=== PATIENT | female | born 1960 | race Two or more races ===

== ENCOUNTER 2021-04-18 13:36 | Inpatient (IN) | payer MEDICARE, MEDICAID ==
[~2021-04-18] VITALS: Ht 167.6 cm; Wt 93.4 kg
[2021-04-18] MEDS ORDERED: NALOXONE HCL 1 MG/ML 2ML VIAL IV ONE ×2 (13:45→14:00)
[2021-04-18] MEDS ORDERED: ONDANSETRON HCL 4MG/2ML INJ IV ONE (14:00)
[2021-04-18] MEDS ORDERED: VANCOMYCIN 1 G PREMIX 200 ML IV SCH (14:30)
[2021-04-18] MEDS ORDERED: SUCCINYLCHOLINE CHLORIDE 200MG/10ML IV ONE (14:30)
[2021-04-18] MEDS ORDERED: PROPOFOL 10MG/ML 100ML 100 ML IV ONE (14:30)
[2021-04-18] MEDS ORDERED: CEFEPIME 2,000 MG in DEXT 5% WATER 100 ML IV SCH (14:30)
[2021-04-18] MEDS ORDERED: ETOMIDATE 2MG/ML 10ML VIAL IV ONE (14:30)
[2021-04-18 14:45] LABS: CHLORIDE 101 mEq/L (98-107); HEMATOCRIT. 48.2 % (36.0-48.0); HEMOGLOBIN. 15.8 g/dL (12.0-16.0); MEAN CORPUSCULAR HEMOGLOBIN 30.7 pg (28.0-32.0); MEAN CORPUSCULAR VOLUME 93.8 fL (81.0-99.0); PLATELET 257 x1000/uL (130-400); RED BLOOD CELL COUNT 5.14 mill/uL (4.2-5.4); RED CELL DISTRIBUTION WIDTH 14.1 % (11.6-14.6)
[2021-04-18 14:50] LABS: ETHANOL BLOOD < 10 mg/dL
[2021-04-18 15:05] LABS: PLATELET ESTIMATE NORMAL
[2021-04-18] MEDS ORDERED: NOREPINEPHRINE 8MG/250ML PMX 250 ML IV NR ×2 (15:30→18:30)
[2021-04-18 15:32] LABS: BG BASE EXCESS -3.4 mmol/L (-2.0-2.0); BG CARBOXYHEMOGLOBIN 0.4 % (0.5-1.5); BG DEOXYHEMOGLOBIN 11.4 % (0.0-5.0); BG HCO3 ACT 23.1 mmol/L (22.0-26.0); BG METHEMOGLOBIN 0.2 % (0.0-1.5); BG OXYGEN SATURATION 88.5 % (92.0-98.5); BG PO2 56.1 mmHg (75.0-100.0); BG SAMPLE SITE RIGHT FEMORAL; BG TOTAL HEMOGLOBIN 15.9 g/dL (12.0-18.0); BG VENT MODE VENT - AC
[2021-04-18] MEDS ORDERED: NOREPINEPHRINE 8MG/250ML PMX 250 ML IV ONE (15:33)
[2021-04-18] MEDS ORDERED: MIDAZOLAM HCL 2 MG/2 ML VIAL IV PRN (15:48)
[2021-04-18] MEDS ORDERED: SODIUM CHLORIDE 0.9% 1000ML BAG (SEPSIS BOLUS) IV ONE (16:15)
[2021-04-18 16:25] LABS: CLARITY URINE TURBID (CLEAR); COLOR URINE YELLOW (YELLOW); KETONES URINE TRACE (NEGATIVE); LEUKOCYTE ESTERASE URINE 3+ (NEGATIVE); NITRITE URINE NEGATIVE (NEGATIVE); OCCULT BLOOD URINE TRACE (NEGATIVE); PROTEIN URINE 1+ (NEGATIVE); SPECIFIC GRAVITY URINE 1.014 (1.005-1.030); UROBILINOGEN URINE 0.2 E.U./dL (0.2-1.0)
[2021-04-18 16:57] LABS: *BARBITURATES SCREEN URINE NEGATIVE (NEGATIVE); CANNABINOID URINE SCREEN NEGATIVE (NEGATIVE); METHADONE URINE SCREEN NEGATIVE (NEGATIVE); OPIATES URINE SCREEN PRESUMTIVE POSITIVE (NEGATIVE); PHENCYCLIDINE URINE SCREEN NEGATIVE (NEGATIVE)
[2021-04-18 16:58] LABS: *AMPHETAMINES SCREEN URINE NEGATIVE (NEGATIVE); *BENZODIAZEPINES SCREEN URINE NEGATIVE (NEGATIVE); *COCAINE SCREEN URINE NEGATIVE (NEGATIVE)
[2021-04-18] MEDS ORDERED: KETAMINE HCL 100 MG in SODIUM CHLORIDE 0.9% 98 ML IV NR (17:00)
[2021-04-18] MEDS ORDERED: NOREPINEPHRINE 8MG/250ML PMX 250 ML IV PRN ×2 (22:00→22:15)
[2021-04-18] MEDS ORDERED: MORPHINE SULFATE 2 MG/ML CPJ (NOT FOR IM USE) IV PRN (22:13)
[2021-04-18] MEDS ORDERED: IPRATROPIUM/ALBUTEROL 0.5-3(2.5)MG/3ML NEB HHN PRN (22:15)
[2021-04-18] MEDS ORDERED: HYDROCODONE/ACETAMINOPHEN 5/325MG TABLET PO PRN (22:15)
[2021-04-18] MEDS ORDERED: GUAIFENESIN 200MG/10ML SUGAR FREE UDC PO PRN (22:15)
[2021-04-18] MEDS ORDERED: HYDRALAZINE 20MG/ML VIAL IV PRN (22:15)
[2021-04-18] MEDS ORDERED: MAGNESIUM/ALUMINUM HYDROXIDE/SIMETHICONE 30ML UDC PO PRN (22:15)
[2021-04-18] MEDS ORDERED: DOCUSATE SODIUM 100MG CAPSULE PO PRN (22:15)
[2021-04-18] MEDS ORDERED: ONDANSETRON HCL 4MG/2ML INJ IV PRN (22:15)
[2021-04-18] MEDS ORDERED: DIPHENHYDRAMINE 50MG/ML VIAL IV PRN (22:15)
[2021-04-18] MEDS ORDERED: ACETAMINOPHEN 325MG TABLET PO PRN (22:15)
[2021-04-18] MEDS ORDERED: PHENYLEPHRINE 100 MG in DEXT 5% WATER 240 ML IV PRN (22:15)
[2021-04-18] MEDS ORDERED: LORAZEPAM 2MG/ML CPJ IV PRN (22:15)
[2021-04-18] MEDS ORDERED: CLONIDINE 0.1MG TABLET PO PRN (22:15)
[2021-04-18] MEDS ORDERED: PIPERACILLIN/TAZ 3.375G PREMIX 50 ML IV NR (22:17)
[2021-04-19] VITALS (78 sets, daily range): BP systolic 39–156; BP diastolic 25–115
[2021-04-19] MEDS: MIDAZOLAM 100MG/100ML PREMIX IV PRN ×2 (01:36→04:52)
[2021-04-19] MEDS ORDERED: NOREPINEPHRINE 8 MG in DEXT 5% WATER 242 ML IV PRN (04:30)
[2021-04-19] MEDS ORDERED: MIDAZOLAM HCL 100 MG in SODIUM CHLORIDE 0.9% 100 ML IV PRN (04:45)
[2021-04-19] MEDS: NOREPINEPHRINE 8 MG in DEXT 5% WATER 242 ML IV PRN ×2 (04:50→08:01)
[2021-04-19 06:32] LABS: BG BASE EXCESS -4.8 mmol/L (-2.0-2.0); BG CARBOXYHEMOGLOBIN 0.1 % (0.5-1.5); BG DEOXYHEMOGLOBIN 6.1 % (0.0-5.0); BG FRACTION INSPIRED OXYGEN 100; BG HCO3 ACT 20.2 mmol/L (22.0-26.0); BG METHEMOGLOBIN 0.4 % (0.0-1.5); BG OXYGEN SATURATION 93.9 % (92.0-98.5); BG OXYHEMOGLOBIN 93.4 % (94.0-97.0); BG PCO2 37.4 mmHg (35.0-45.0); BG SAMPLE SITE RIGHT RADIAL; BG TOTAL HEMOGLOBIN 15.6 g/dL (12.0-18.0); BG VENT MODE VENT - AC
[2021-04-19] MEDS: ACETAMINOPHEN 650MG/20.3ML UDC PO PRN (07:59)
[2021-04-19] MEDS: DEXT 5%/0.45% NACL 1000ML 1,000 ML IV SCH ×2 (08:00→14:55)
[2021-04-19 08:32] LABS: BASOPHILS % 0.2 % (0.0-2.0); EOSINOPHILS % 0.7 % (0.0-5.0); HEMATOCRIT. 46.2 % (36.0-48.0); HEMOGLOBIN. 15.3 g/dL (12.0-16.0); LYMPHOCYTES % 7.9 % (20.0-50.0); MEAN CORPUSCULAR HEMOGLOBIN 30.9 pg (28.0-32.0); MEAN CORPUSCULAR VOLUME 93.1 fL (81.0-99.0); MEAN PLATELET VOLUME 9.3 fl (7.4-10.4); MONOCYTES % 3.2 % (2.0-8.0); PLATELET 201 x1000/uL (130-400); RED BLOOD CELL COUNT 4.96 mill/uL (4.2-5.4); RED CELL DISTRIBUTION WIDTH 14.1 % (11.6-14.6)
[2021-04-19 08:33] LABS: CHLORIDE 108 mEq/L (98-107)
[2021-04-19 08:54] LABS: CREATINE KINASE 2175 IU/L (26-192)
[2021-04-19] MEDS ORDERED: PIPERACILLIN/TAZOBACTAM 3.375 G in DEXTROSE 5% WATER 50 ML IV SCH (09:00)
[2021-04-19] MEDS ORDERED: ENOXAPARIN 30MG/0.3ML SYR SUBCUT SCH (09:00)
[2021-04-19] MEDS ORDERED: ENOXAPARIN 60MG/0.6ML SYR SUBCUT SCH (10:01)
[2021-04-19 10:32] LABS: D-DIMER 19.38 mg/L FEU (<0.50); INR 1.5; PROTHROMBIN TIME 15.2 sec (9.6-11.0)
[2021-04-19] MEDS ORDERED: FLUMAZENIL 0.1 MG/ML 5ML VIAL IV NR (11:30)
[2021-04-19] MEDS: NOREPINEPHRINE 32 MG in DEXT 5% WATER 218 ML IV PRN (12:13)
[2021-04-19] MEDS: FENTANYL CITRATE/PF 2,500 MCG in SODIUM CHLORIDE 0.9% 200 ML IV PRN (13:46)
[2021-04-19] MEDS: IPRATROPIUM/ALBUTEROL 0.5-3(2.5)MG/3ML NEB HHN SCH (20:08)
[2021-04-19] MEDS: PIPERACILLIN/TAZOBACTAM 3.375 G in DEXTROSE 5% WATER 50 ML IV SCH (21:14)
[2021-04-19] MEDS: ENOXAPARIN 100MG/ML SYR SUBCUT SCH (21:14)
[2021-04-20] VITALS (95 sets, daily range): BP systolic 67–137; BP diastolic 34–87
[2021-04-20] MEDS: DEXT 5%/0.45% NACL 1000ML 1,000 ML IV SCH ×2 (00:04→22:29)
[2021-04-20] MEDS: IPRATROPIUM/ALBUTEROL 0.5-3(2.5)MG/3ML NEB HHN SCH ×6 (00:14→19:50)
[2021-04-20] MEDS: ACETAMINOPHEN 650MG/20.3ML UDC PO PRN (05:01)
[2021-04-20 06:07] LABS: BASOPHILS % 0.2 % (0.0-2.0); EOSINOPHILS % 0.1 % (0.0-5.0); HEMATOCRIT. 39.6 % (36.0-48.0); HEMOGLOBIN. 13.3 g/dL (12.0-16.0); LYMPHOCYTES % 8.6 % (20.0-50.0); MEAN CORPUSCULAR HEMOGLOBIN 30.7 pg (28.0-32.0); MEAN CORPUSCULAR VOLUME 91.4 fL (81.0-99.0); MEAN PLATELET VOLUME 8.9 fl (7.4-10.4); MONOCYTES % 2.5 % (2.0-8.0); NEUTROPHILS % 88.6 % (40.0-76.0); PLATELET 155 x1000/uL (130-400); RED BLOOD CELL COUNT 4.33 mill/uL (4.2-5.4)
[2021-04-20 06:30] LABS: PHOSPHORUS 1.4 mg/dL (2.5-4.9)
[2021-04-20] MEDS: THIAMINE HCL 100MG TABLET PO SCH (08:43)
[2021-04-20] MEDS: PIPERACILLIN/TAZOBACTAM 3.375 G in DEXTROSE 5% WATER 50 ML IV SCH ×2 (08:43→20:15)
[2021-04-20] MEDS: ENOXAPARIN 100MG/ML SYR SUBCUT SCH ×2 (08:48→20:14)
[2021-04-20] MEDS ORDERED: POTASSIUM PHOS,M-BASIC-D-BASIC 20 MMOL in DEXT 5% WATER 243.3333 ML IV NR (09:00)
[2021-04-20 09:10] LABS: ANTI-NUCLEAR ANTIBODIES DIRECT Negative (Negative)
[2021-04-20] MEDS: PANTOPRAZOLE SODIUM 40 MG/VIAL IV SCH (09:53)
[2021-04-20 09:58] LABS: BG BASE EXCESS -0.7 mmol/L (-2.0-2.0); BG DEOXYHEMOGLOBIN 3.9 % (0.0-5.0); BG FRACTION INSPIRED OXYGEN 100; BG HCO3 ACT 22.7 mmol/L (22.0-26.0); BG OXYGEN SATURATION 96.1 % (92.0-98.5); BG OXYHEMOGLOBIN 96.1 % (94.0-97.0); BG PCO2 33.5 mmHg (35.0-45.0); BG PH 7.448 (7.350-7.450); BG PO2 79.7 mmHg (75.0-100.0); BG SAMPLE SITE LEFT RADIAL; BG VENT MODE VENT - AC
[2021-04-20] MEDS: NOREPINEPHRINE 32 MG in DEXT 5% WATER 218 ML IV PRN (20:15)
[2021-04-20] MEDS: FENTANYL CITRATE/PF 2,500 MCG in SODIUM CHLORIDE 0.9% 200 ML IV PRN (20:30)
[2021-04-21] VITALS (95 sets, daily range): BP systolic 70–155; BP diastolic 40–118
[2021-04-21] MEDS: IPRATROPIUM/ALBUTEROL 0.5-3(2.5)MG/3ML NEB HHN SCH ×6 (00:05→19:59)
[2021-04-21 05:33] LABS: BASOPHILS % 0.3 % (0.0-2.0); EOSINOPHILS % 0.2 % (0.0-5.0); HEMATOCRIT. 37.5 % (36.0-48.0); HEMOGLOBIN. 12.7 g/dL (12.0-16.0); LYMPHOCYTES % 7.8 % (20.0-50.0); MEAN CORPUSCULAR VOLUME 91.9 fL (81.0-99.0); MEAN PLATELET VOLUME 9.1 fl (7.4-10.4); MONOCYTES % 5.1 % (2.0-8.0); NEUTROPHILS % 86.6 % (40.0-76.0); PLATELET 159 x1000/uL (130-400); RED BLOOD CELL COUNT 4.08 mill/uL (4.2-5.4); RED CELL DISTRIBUTION WIDTH 14.1 % (11.6-14.6)
[2021-04-21 05:35] LABS: CHLORIDE 110 mEq/L (98-107)
[2021-04-21 07:34] LABS: BG BASE EXCESS 0.2 mmol/L (-2.0-2.0); BG CARBOXYHEMOGLOBIN 0.3 % (0.5-1.5); BG DEOXYHEMOGLOBIN 3.5 % (0.0-5.0); BG HCO3 ACT 24.4 mmol/L (22.0-26.0); BG METHEMOGLOBIN 0.1 % (0.0-1.5); BG OXYGEN SATURATION 96.5 % (92.0-98.5); BG OXYHEMOGLOBIN 96.1 % (94.0-97.0); BG PCO2 38.1 mmHg (35.0-45.0); BG PH 7.425 (7.350-7.450); BG PO2 88.6 mmHg (75.0-100.0); BG SAMPLE SITE RIGHT RADIAL; BG TOTAL HEMOGLOBIN 12.9 g/dL (12.0-18.0); BG VENT MODE VENT - AC
[2021-04-21] MEDS ORDERED: POTASSIUM CHLORIDE 20MEQ/PACKET PO NR (08:00)
[2021-04-21] MEDS: PANTOPRAZOLE SODIUM 40 MG/VIAL IV SCH (09:07)
[2021-04-21] MEDS: PIPERACILLIN/TAZOBACTAM 3.375 G in DEXTROSE 5% WATER 50 ML IV SCH ×2 (09:08→21:38)
[2021-04-21] MEDS: ENOXAPARIN 100MG/ML SYR SUBCUT SCH ×2 (09:08→21:38)
[2021-04-21] MEDS: THIAMINE HCL 100MG TABLET PO SCH (09:09)
[2021-04-21] MEDS ORDERED: DOCUSATE SODIUM SUGAR FREE 100MG/10ML UDC NG PRN (12:15)
[2021-04-21 17:41] LABS: HEPATITIS B SURFACE ANTIGEN NEGATIVE
[2021-04-21] MEDS: FENTANYL CITRATE/PF 2,500 MCG in SODIUM CHLORIDE 0.9% 200 ML IV PRN (21:41)
[2021-04-22] VITALS (94 sets, daily range): BP systolic 88–154; BP diastolic 46–107
[2021-04-22] MEDS: IPRATROPIUM/ALBUTEROL 0.5-3(2.5)MG/3ML NEB HHN SCH ×5 (00:32→20:22)
[2021-04-22 06:02] LABS: HEMATOCRIT. 36.3 % (36.0-48.0); HEMOGLOBIN. 12.1 g/dL (12.0-16.0); MEAN CORPUSCULAR HEMOGLOBIN 30.8 pg (28.0-32.0); MEAN CORPUSCULAR VOLUME 92.1 fL (81.0-99.0); PLATELET 141 x1000/uL (130-400); RED BLOOD CELL COUNT 3.95 mill/uL (4.2-5.4); RED CELL DISTRIBUTION WIDTH 14.2 % (11.6-14.6)
[2021-04-22 06:12] LABS: CHLORIDE 113 mEq/L (98-107)
[2021-04-22 06:25] LABS: PHOSPHORUS 1.7 mg/dL (2.5-4.9)
[2021-04-22 08:54] LABS: BG CARBOXYHEMOGLOBIN 0.3 % (0.5-1.5); BG DEOXYHEMOGLOBIN 1.1 % (0.0-5.0); BG FRACTION INSPIRED OXYGEN 90; BG HCO3 ACT 24.1 mmol/L (22.0-26.0); BG METHEMOGLOBIN 0.4 % (0.0-1.5); BG OXYGEN SATURATION 98.9 % (92.0-98.5); BG OXYHEMOGLOBIN 98.2 % (94.0-97.0); BG PCO2 37.4 mmHg (35.0-45.0); BG PH 7.427 (7.350-7.450); BG PO2 150.7 mmHg (75.0-100.0); BG SAMPLE SITE RIGHT RADIAL; BG TOTAL HEMOGLOBIN 12.6 g/dL (12.0-18.0); BG VENT MODE VENT - AC
[2021-04-22] MEDS ORDERED: POTASSIUM PHOS,M-BASIC-D-BASIC 20 MMOL in DEXT 5% WATER 243.3333 ML IV NR (09:00)
[2021-04-22] MEDS: ENOXAPARIN 100MG/ML SYR SUBCUT SCH ×2 (10:01→20:45)
[2021-04-22] MEDS: PANTOPRAZOLE SODIUM 40 MG/VIAL IV SCH (10:01)
[2021-04-22] MEDS: PIPERACILLIN/TAZOBACTAM 3.375 G in DEXTROSE 5% WATER 50 ML IV SCH ×2 (10:01→20:48)
[2021-04-22] MEDS: THIAMINE HCL 100MG TABLET PO SCH (10:01)
[2021-04-22] MEDS ORDERED: LIDOCAINE HCL 1% 10 MG/ML 10ML VIAL ONE (11:18)
[2021-04-22] MEDS: FENTANYL CITRATE/PF 2,500 MCG in SODIUM CHLORIDE 0.9% 200 ML IV PRN (13:48)
[2021-04-22] MEDS: ZINC SULFATE 220 MG ( 50 ) CAPSULE PO SCH (13:59)
[2021-04-22] MEDS: ASCORBIC ACID 500 MG TABLET PO SCH (13:59)
[2021-04-22 14:24] LABS: PLATELET ESTIMATE NORMAL
[2021-04-22] MEDS: ACETAMINOPHEN 650MG/20.3ML UDC PO PRN (22:08)
[2021-04-23] VITALS (79 sets, daily range): BP systolic 91–155; BP diastolic 36–89
[2021-04-23] MEDS: IPRATROPIUM/ALBUTEROL 0.5-3(2.5)MG/3ML NEB HHN SCH ×6 (00:49→20:29)
[2021-04-23] MEDS: FENTANYL CITRATE/PF 2,500 MCG in SODIUM CHLORIDE 0.9% 200 ML IV PRN ×2 (04:59→17:45)
[2021-04-23 06:07] LABS: HEMATOCRIT. 34.3 % (36.0-48.0); HEMOGLOBIN. 11.4 g/dL (12.0-16.0); MEAN CORPUSCULAR HEMOGLOBIN 30.5 pg (28.0-32.0); MEAN CORPUSCULAR VOLUME 91.7 fL (81.0-99.0); MEAN PLATELET VOLUME 9.1 fl (7.4-10.4); PLATELET 137 x1000/uL (130-400); RED BLOOD CELL COUNT 3.74 mill/uL (4.2-5.4); RED CELL DISTRIBUTION WIDTH 14.3 % (11.6-14.6)
[2021-04-23 06:12] LABS: CHLORIDE 115 mEq/L (98-107)
[2021-04-23 08:02] LABS: BG BASE EXCESS 2.9 mmol/L (-2.0-2.0); BG CARBOXYHEMOGLOBIN 0.3 % (0.5-1.5); BG DEOXYHEMOGLOBIN 6.9 % (0.0-5.0); BG FRACTION INSPIRED OXYGEN 60; BG HCO3 ACT 26.4 mmol/L (22.0-26.0); BG METHEMOGLOBIN 0.1 % (0.0-1.5); BG OXYGEN SATURATION 93.1 % (92.0-98.5); BG OXYHEMOGLOBIN 92.7 % (94.0-97.0); BG PCO2 36.8 mmHg (35.0-45.0); BG PH 7.474 (7.350-7.450); BG PO2 59.6 mmHg (75.0-100.0); BG SAMPLE SITE RIGHT RADIAL; BG TOTAL HEMOGLOBIN 12.1 g/dL (12.0-18.0); BG TOTAL RESPIRATORY RATE 23 b/min; BG VENT MODE VENT - AC
[2021-04-23 08:09] LABS: PLATELET ESTIMATE NORMAL
[2021-04-23] MEDS: PANTOPRAZOLE SODIUM 40 MG/VIAL IV SCH (08:40)
[2021-04-23] MEDS: ZINC SULFATE 220 MG ( 50 ) CAPSULE PO SCH (08:40)
[2021-04-23] MEDS: ASCORBIC ACID 500 MG TABLET PO SCH (08:40)
[2021-04-23] MEDS: ENOXAPARIN 100MG/ML SYR SUBCUT SCH ×2 (08:40→20:59)
[2021-04-23] MEDS: PIPERACILLIN/TAZOBACTAM 3.375G in DEXT 5% WATER 50ML IV SCH ×3 (08:41→21:57)
[2021-04-23] MEDS: THIAMINE HCL 100MG TABLET PO SCH (08:41)
[2021-04-23] MEDS: FLUCONAZOLE 100MG TABLET PO SCH (11:08)
[2021-04-23] MEDS: ACETAMINOPHEN 650MG/20.3ML UDC PO PRN ×2 (11:08→16:27)
[2021-04-23] MEDS: ACETYLCYSTEINE 100MG/ML 10% VIAL 4ML INH SCH (12:09)
[2021-04-24] VITALS (97 sets, daily range): BP systolic 28–174; BP diastolic 16–101
[2021-04-24] MEDS: IPRATROPIUM/ALBUTEROL 0.5-3(2.5)MG/3ML NEB HHN SCH ×6 (00:26→20:18)
[2021-04-24] MEDS: ACETYLCYSTEINE 100MG/ML 10% VIAL 4ML INH SCH ×3 (00:26→15:53)
[2021-04-24] MEDS: ACETAMINOPHEN 650MG/20.3ML UDC PO PRN ×2 (03:35→10:03)
[2021-04-24 05:26] LABS: CHLORIDE 113 mEq/L (98-107)
[2021-04-24 05:28] LABS: HEMATOCRIT. 37.1 % (36.0-48.0); HEMOGLOBIN. 12.3 g/dL (12.0-16.0); MEAN CORPUSCULAR HEMOGLOBIN 30.4 pg (28.0-32.0); MEAN CORPUSCULAR VOLUME 91.7 fL (81.0-99.0); MEAN PLATELET VOLUME 9.7 fl (7.4-10.4); PLATELET 164 x1000/uL (130-400); RED BLOOD CELL COUNT 4.05 mill/uL (4.2-5.4); RED CELL DISTRIBUTION WIDTH 14.1 % (11.6-14.6)
[2021-04-24] MEDS: PIPERACILLIN/TAZOBACTAM 3.375G in DEXT 5% WATER 50ML IV SCH ×3 (05:34→21:45)
[2021-04-24] MEDS: FENTANYL CITRATE/PF 2,500 MCG in SODIUM CHLORIDE 0.9% 200 ML IV PRN (06:55)
[2021-04-24 06:59] LABS: PLATELET ESTIMATE NORMAL
[2021-04-24 08:40] LABS: BG BASE EXCESS 3.6 mmol/L (-2.0-2.0); BG DEOXYHEMOGLOBIN 8.2 % (0.0-5.0); BG FRACTION INSPIRED OXYGEN 60; BG HCO3 ACT 26.8 mmol/L (22.0-26.0); BG METHEMOGLOBIN 0.1 % (0.0-1.5); BG OXYGEN SATURATION 91.8 % (92.0-98.5); BG OXYHEMOGLOBIN 91.7 % (94.0-97.0); BG PCO2 35.7 mmHg (35.0-45.0); BG PH 7.494 (7.350-7.450); BG PO2 57.2 mmHg (75.0-100.0); BG SAMPLE SITE RIGHT RADIAL; BG TOTAL HEMOGLOBIN 11.6 g/dL (12.0-18.0); BG TOTAL RESPIRATORY RATE 28 b/min; BG VENT MODE VENT - AC
[2021-04-24] MEDS: PANTOPRAZOLE SODIUM 40 MG/VIAL IV SCH (08:41)
[2021-04-24] MEDS: THIAMINE HCL 100MG TABLET PO SCH (08:41)
[2021-04-24] MEDS: FLUCONAZOLE 100MG TABLET PO SCH (08:41)
[2021-04-24] MEDS: ENOXAPARIN 100MG/ML SYR SUBCUT SCH ×2 (08:41→20:50)
[2021-04-24] MEDS: ZINC SULFATE 220 MG ( 50 ) CAPSULE PO SCH (08:41)
[2021-04-24] MEDS: ASCORBIC ACID 500 MG TABLET PO SCH (08:41)
[2021-04-24] MEDS: LORAZEPAM 2MG/ML CPJ IV PRN ×2 (08:55→13:28)
[2021-04-24] MEDS: AZITHROMYCIN 500 MG TABLET PO SCH (12:08)
[2021-04-24] MEDS ORDERED: FENTANYL CITRATE/PF 2,500 MCG in SODIUM CHLORIDE 0.9% 200 ML IV PRN (20:00)
[2021-04-25] VITALS (69 sets, daily range): BP systolic 75–156; BP diastolic 38–102
[2021-04-25] MEDS: ACETYLCYSTEINE 100MG/ML 10% VIAL 4ML INH SCH ×3 (00:18→16:26)
[2021-04-25] MEDS: IPRATROPIUM/ALBUTEROL 0.5-3(2.5)MG/3ML NEB HHN SCH ×6 (00:18→20:12)
[2021-04-25 06:07] LABS: BASOPHILS % 0.1 % (0.0-2.0); EOSINOPHILS % 0.2 % (0.0-5.0); HEMATOCRIT. 33.9 % (36.0-48.0); HEMOGLOBIN. 11.2 g/dL (12.0-16.0); MEAN CORPUSCULAR HEMOGLOBIN 30.6 pg (28.0-32.0); MEAN CORPUSCULAR VOLUME 92.4 fL (81.0-99.0); MEAN PLATELET VOLUME 10.3 fl (7.4-10.4); MONOCYTES % 4.5 % (2.0-8.0); NEUTROPHILS % 87.2 % (40.0-76.0); PLATELET 193 x1000/uL (130-400); RED BLOOD CELL COUNT 3.67 mill/uL (4.2-5.4)
[2021-04-25 06:21] LABS: CHLORIDE 113 mEq/L (98-107)
[2021-04-25] MEDS: ACETAMINOPHEN 650MG/20.3ML UDC PO PRN ×3 (06:33→22:07)
[2021-04-25] MEDS: PANTOPRAZOLE SODIUM 40 MG/VIAL IV SCH (09:11)
[2021-04-25] MEDS: AZITHROMYCIN 500 MG TABLET PO SCH (09:11)
[2021-04-25] MEDS: THIAMINE HCL 100MG TABLET PO SCH (09:11)
[2021-04-25] MEDS: FLUCONAZOLE 100MG TABLET PO SCH (09:11)
[2021-04-25] MEDS: ZINC SULFATE 220 MG ( 50 ) CAPSULE PO SCH (09:12)
[2021-04-25] MEDS: ASCORBIC ACID 500 MG TABLET PO SCH (09:15)
[2021-04-25] MEDS: ENOXAPARIN 100MG/ML SYR SUBCUT SCH ×2 (09:15→20:42)
[2021-04-25 09:30] LABS: BG BASE EXCESS 5.2 mmol/L (-2.0-2.0); BG DEOXYHEMOGLOBIN 1.6 % (0.0-5.0); BG FRACTION INSPIRED OXYGEN 70; BG METHEMOGLOBIN 0.2 % (0.0-1.5); BG OXYGEN SATURATION 98.4 % (92.0-98.5); BG OXYHEMOGLOBIN 98.2 % (94.0-97.0); BG PCO2 39.8 mmHg (35.0-45.0); BG PH 7.481 (7.350-7.450); BG PO2 118.8 mmHg (75.0-100.0); BG SAMPLE SITE RIGHT RADIAL; BG TOTAL HEMOGLOBIN 11.7 g/dL (12.0-18.0); BG VENT MODE VENT - AC
[2021-04-25] MEDS: DEXTROSE 5% WATER 1,000 ML IV SCH (09:56)
[2021-04-25] MEDS: FENTANYL CITRATE/PF 2,500 MCG in SODIUM CHLORIDE 0.9% 200 ML IV PRN (12:53)
[2021-04-25] MEDS: VANCOMYCIN 1 G PREMIX 200 ML IV SCH (17:06)
[2021-04-25] MEDS: MEROPENEM 1,000 MG in SODIUM CHLORIDE 0.9% 100 ML IV SCH (17:28)
[2021-04-26] VITALS (95 sets, daily range): BP systolic 97–163; BP diastolic 44–111
[2021-04-26] MEDS: ACETYLCYSTEINE 100MG/ML 10% VIAL 4ML INH SCH ×3 (00:17→16:53)
[2021-04-26] MEDS: IPRATROPIUM/ALBUTEROL 0.5-3(2.5)MG/3ML NEB HHN SCH ×6 (00:18→20:48)
[2021-04-26] MEDS: MEROPENEM 1,000 MG in SODIUM CHLORIDE 0.9% 100 ML IV SCH ×3 (02:23→17:18)
[2021-04-26] MEDS: FENTANYL CITRATE/PF 2,500 MCG in SODIUM CHLORIDE 0.9% 200 ML IV PRN ×2 (03:52→17:48)
[2021-04-26 04:58] LABS: BASOPHILS % 0.1 % (0.0-2.0); EOSINOPHILS % 0.1 % (0.0-5.0); HEMATOCRIT. 30.8 % (36.0-48.0); HEMOGLOBIN. 10.1 g/dL (12.0-16.0); MEAN CORPUSCULAR VOLUME 91.5 fL (81.0-99.0); MEAN PLATELET VOLUME 9.7 fl (7.4-10.4); MONOCYTES % 3.9 % (2.0-8.0); NEUTROPHILS % 87.9 % (40.0-76.0); PLATELET 234 x1000/uL (130-400); RED BLOOD CELL COUNT 3.37 mill/uL (4.2-5.4); RED CELL DISTRIBUTION WIDTH 13.8 % (11.6-14.6)
[2021-04-26 05:13] LABS: CHLORIDE 112 mEq/L (98-107)
[2021-04-26 05:22] LABS: CREATINE KINASE 41 IU/L (26-192)
[2021-04-26] MEDS: VANCOMYCIN 1 G PREMIX 200 ML IV SCH ×2 (05:30→16:21)
[2021-04-26] MEDS: THIAMINE HCL 100MG TABLET PO SCH (08:37)
[2021-04-26] MEDS: PANTOPRAZOLE SODIUM 40 MG/VIAL IV SCH (08:37)
[2021-04-26] MEDS: ENOXAPARIN 100MG/ML SYR SUBCUT SCH ×2 (08:37→21:50)
[2021-04-26] MEDS: AZITHROMYCIN 500 MG TABLET PO SCH (08:37)
[2021-04-26] MEDS: FLUCONAZOLE 100MG TABLET PO SCH (08:37)
[2021-04-26] MEDS: ASCORBIC ACID 500 MG TABLET PO SCH (08:37)
[2021-04-26] MEDS: DEXTROSE 5% WATER 1,000 ML IV SCH (08:39)
[2021-04-26] MEDS: ZINC SULFATE 220 MG ( 50 ) CAPSULE PO SCH (08:42)
[2021-04-26] MEDS: ACETAMINOPHEN 650MG/20.3ML UDC PO PRN (11:37)
[2021-04-26 12:51] LABS: BG BASE EXCESS 2.1 mmol/L (-2.0-2.0); BG CARBOXYHEMOGLOBIN 0.3 % (0.5-1.5); BG DEOXYHEMOGLOBIN 7.2 % (0.0-5.0); BG FRACTION INSPIRED OXYGEN 65; BG HCO3 ACT 25.4 mmol/L (22.0-26.0); BG METHEMOGLOBIN 0.2 % (0.0-1.5); BG OXYGEN SATURATION 92.8 % (92.0-98.5); BG OXYHEMOGLOBIN 92.3 % (94.0-97.0); BG PCO2 34.8 mmHg (35.0-45.0); BG PH 7.481 (7.350-7.450); BG PO2 60.9 mmHg (75.0-100.0); BG SAMPLE SITE LEFT RADIAL; BG TOTAL HEMOGLOBIN 11.2 g/dL (12.0-18.0); BG VENT MODE VENT - AC
[2021-04-27] VITALS (94 sets, daily range): BP systolic 96–144; BP diastolic 45–96
[2021-04-27] MEDS: IPRATROPIUM/ALBUTEROL 0.5-3(2.5)MG/3ML NEB HHN SCH ×5 (00:52→22:05)
[2021-04-27] MEDS: ACETYLCYSTEINE 100MG/ML 10% VIAL 4ML INH SCH ×3 (00:52→15:50)
[2021-04-27] MEDS: MEROPENEM 1,000 MG in SODIUM CHLORIDE 0.9% 100 ML IV SCH ×3 (01:04→17:48)
[2021-04-27 03:15] LABS: HEMATOCRIT. 32.8 % (36.0-48.0); HEMOGLOBIN. 10.9 g/dL (12.0-16.0); MEAN CORPUSCULAR HEMOGLOBIN 30.8 pg (28.0-32.0); MEAN CORPUSCULAR VOLUME 92.5 fL (81.0-99.0); MEAN PLATELET VOLUME 9.3 fl (7.4-10.4); PLATELET 276 x1000/uL (130-400); RED BLOOD CELL COUNT 3.54 mill/uL (4.2-5.4)
[2021-04-27 03:36] LABS: CHLORIDE 111 mEq/L (98-107)
[2021-04-27 03:41] LABS: PHOSPHORUS 1.9 mg/dL (2.5-4.9)
[2021-04-27] MEDS: VANCOMYCIN 1 G PREMIX 200 ML IV SCH (04:03)
[2021-04-27] MEDS: FENTANYL CITRATE/PF 2,500 MCG in SODIUM CHLORIDE 0.9% 200 ML IV PRN ×2 (08:01→18:53)
[2021-04-27 08:21] LABS: PLATELET ESTIMATE NORMAL
[2021-04-27] MEDS: DEXTROSE 5% WATER 1,000 ML IV SCH (09:47)
[2021-04-27] MEDS: ENOXAPARIN 100MG/ML SYR SUBCUT SCH ×2 (09:47→20:08)
[2021-04-27] MEDS: AZITHROMYCIN 500 MG TABLET PO SCH (09:48)
[2021-04-27] MEDS: THIAMINE HCL 100MG TABLET PO SCH (09:48)
[2021-04-27] MEDS: FLUCONAZOLE 100MG TABLET PO SCH (09:48)
[2021-04-27] MEDS: PANTOPRAZOLE SODIUM 40 MG/VIAL IV SCH (09:48)
[2021-04-27] MEDS: ZINC SULFATE 220 MG ( 50 ) CAPSULE PO SCH (09:48)
[2021-04-27] MEDS: ASCORBIC ACID 500 MG TABLET PO SCH (09:48)
[2021-04-27] MEDS: ACETAMINOPHEN 650MG/20.3ML UDC PO PRN (09:48)
[2021-04-27] MEDS ORDERED: POTASSIUM PHOS,M-BASIC-D-BASIC 20 MMOL in DEXT 5% WATER 243.3333 ML IV SCH (10:00)
[2021-04-27] MEDS ORDERED: VANCOMYCIN 1250MG in DEXTROSE 5% WATER 250ML IV SCH (12:00)
[2021-04-27] MEDS ORDERED: BISACODYL 10MG SUPP PR PRN (13:00)
[2021-04-28] VITALS (70 sets, daily range): BP systolic 96–133; BP diastolic 45–93
[2021-04-28] MEDS: IPRATROPIUM/ALBUTEROL 0.5-3(2.5)MG/3ML NEB HHN SCH ×6 (01:24→20:21)
[2021-04-28] MEDS: MEROPENEM 1,000 MG in SODIUM CHLORIDE 0.9% 100 ML IV SCH ×3 (02:16→17:40)
[2021-04-28] MEDS ORDERED: IOHEXOL-300 100 ML BOTTLE ONE (05:02)
[2021-04-28 06:13] LABS: BASOPHILS % 0.3 % (0.0-2.0); EOSINOPHILS % 1.1 % (0.0-5.0); HEMATOCRIT. 28.9 % (36.0-48.0); HEMOGLOBIN. 9.3 g/dL (12.0-16.0); LYMPHOCYTES % 8.6 % (20.0-50.0); MEAN CORPUSCULAR HEMOGLOBIN 30.2 pg (28.0-32.0); MEAN CORPUSCULAR VOLUME 93.4 fL (81.0-99.0); MEAN PLATELET VOLUME 9.8 fl (7.4-10.4); MONOCYTES % 3.8 % (2.0-8.0); NEUTROPHILS % 86.2 % (40.0-76.0); PLATELET 300 x1000/uL (130-400); RED CELL DISTRIBUTION WIDTH 13.8 % (11.6-14.6)
[2021-04-28 06:16] LABS: CHLORIDE 110 mEq/L (98-107)
[2021-04-28 06:22] LABS: PHOSPHORUS 2.3 mg/dL (2.5-4.9)
[2021-04-28] MEDS: FENTANYL CITRATE/PF 2,500 MCG in SODIUM CHLORIDE 0.9% 200 ML IV PRN ×2 (08:09→22:38)
[2021-04-28] MEDS: ASCORBIC ACID 500 MG TABLET PO SCH (08:59)
[2021-04-28] MEDS: ZINC SULFATE 220 MG ( 50 ) CAPSULE PO SCH (08:59)
[2021-04-28] MEDS: THIAMINE HCL 100MG TABLET PO SCH (08:59)
[2021-04-28] MEDS: ACETAMINOPHEN 650MG/20.3ML UDC PO PRN ×2 (08:59→16:06)
[2021-04-28] MEDS: AZITHROMYCIN 500 MG TABLET PO SCH (08:59)
[2021-04-28] MEDS: ENOXAPARIN 100MG/ML SYR SUBCUT SCH ×2 (09:03→21:14)
[2021-04-28] MEDS: ACETYLCYSTEINE 100MG/ML 10% VIAL 4ML INH SCH (09:08)
[2021-04-28 09:43] LABS: BG BASE EXCESS 2.4 mmol/L (-2.0-2.0); BG CARBOXYHEMOGLOBIN 0.3 % (0.5-1.5); BG DEOXYHEMOGLOBIN 2.9 % (0.0-5.0); BG FRACTION INSPIRED OXYGEN 80; BG HCO3 ACT 25.4 mmol/L (22.0-26.0); BG METHEMOGLOBIN 0.2 % (0.0-1.5); BG OXYGEN SATURATION 97.1 % (92.0-98.5); BG OXYHEMOGLOBIN 96.6 % (94.0-97.0); BG PCO2 33.6 mmHg (35.0-45.0); BG PH 7.497 (7.350-7.450); BG PO2 90.5 mmHg (75.0-100.0); BG SAMPLE SITE LEFT RADIAL; BG TOTAL HEMOGLOBIN 10.5 g/dL (12.0-18.0); BG VENT MODE VENT - AC
[2021-04-28] MEDS: PANTOPRAZOLE SODIUM 40 MG/VIAL IV SCH (09:56)
[2021-04-28] MEDS ORDERED: SODIUM PHOS,M-BASIC-D-BASIC 20 MM in DEXT 5% WATER 243.3333 ML IV NR (10:00)
[2021-04-28] MEDS: DEXTROSE 5% WATER 1,000 ML IV SCH (13:55)
[2021-04-28] MEDS: METHYLPREDNISOLONE SOD SUCC 40 MG/ML VIAL IV SCH ×2 (13:55→21:14)
[2021-04-29] VITALS (94 sets, daily range): BP systolic 75–135; BP diastolic 49–93
[2021-04-29] MEDS: ACETAMINOPHEN 650MG/20.3ML UDC PO PRN ×3 (00:12→17:16)
[2021-04-29] MEDS: IPRATROPIUM/ALBUTEROL 0.5-3(2.5)MG/3ML NEB HHN SCH ×6 (00:39→20:51)
[2021-04-29] MEDS: MEROPENEM 1,000 MG in SODIUM CHLORIDE 0.9% 100 ML IV SCH ×3 (01:43→17:13)
[2021-04-29] MEDS: METHYLPREDNISOLONE SOD SUCC 40 MG/ML VIAL IV SCH ×3 (05:20→21:32)
[2021-04-29 06:00] LABS: HEMATOCRIT. 30.4 % (36.0-48.0); HEMOGLOBIN. 9.8 g/dL (12.0-16.0); MEAN CORPUSCULAR HEMOGLOBIN 30.3 pg (28.0-32.0); MEAN CORPUSCULAR VOLUME 93.5 fL (81.0-99.0); MEAN PLATELET VOLUME 10.1 fl (7.4-10.4); PLATELET 359 x1000/uL (130-400); RED BLOOD CELL COUNT 3.25 mill/uL (4.2-5.4); RED CELL DISTRIBUTION WIDTH 13.9 % (11.6-14.6)
[2021-04-29 06:14] LABS: CHLORIDE 108 mEq/L (98-107)
[2021-04-29 06:30] LABS: PHOSPHORUS 2.8 mg/dL (2.5-4.9)
[2021-04-29] MEDS: ASCORBIC ACID 500 MG TABLET PO SCH (08:13)
[2021-04-29] MEDS: THIAMINE HCL 100MG TABLET PO SCH (08:13)
[2021-04-29] MEDS: ZINC SULFATE 220 MG ( 50 ) CAPSULE PO SCH (08:13)
[2021-04-29] MEDS: ENOXAPARIN 100MG/ML SYR SUBCUT SCH ×2 (08:13→20:18)
[2021-04-29] MEDS: PANTOPRAZOLE SODIUM 40 MG/VIAL IV SCH (08:13)
[2021-04-29 08:57] LABS: BG BASE EXCESS 2.9 mmol/L (-2.0-2.0); BG CARBOXYHEMOGLOBIN 0.3 % (0.5-1.5); BG DEOXYHEMOGLOBIN 3.7 % (0.0-5.0); BG FRACTION INSPIRED OXYGEN 80; BG HCO3 ACT 26.8 mmol/L (22.0-26.0); BG METHEMOGLOBIN 0.3 % (0.0-1.5); BG OXYGEN SATURATION 96.3 % (92.0-98.5); BG OXYHEMOGLOBIN 95.7 % (94.0-97.0); BG PCO2 38.4 mmHg (35.0-45.0); BG PH 7.462 (7.350-7.450); BG PO2 82.4 mmHg (75.0-100.0); BG SAMPLE SITE RIGHT RADIAL; BG TOTAL HEMOGLOBIN 10.9 g/dL (12.0-18.0); BG TOTAL RESPIRATORY RATE 40 b/min; BG VENT MODE VENT- PRVC
[2021-04-29] MEDS: DEXTROSE 5% WATER 1,000 ML IV SCH (08:57)
[2021-04-29] MEDS: FENTANYL CITRATE/PF 2,500 MCG in SODIUM CHLORIDE 0.9% 200 ML IV PRN ×2 (09:21→20:17)
[2021-04-29 11:55] LABS: PLATELET ESTIMATE NORMAL
[2021-04-30] VITALS (94 sets, daily range): BP systolic 98–156; BP diastolic 39–146
[2021-04-30] MEDS: IPRATROPIUM/ALBUTEROL 0.5-3(2.5)MG/3ML NEB HHN SCH ×6 (01:03→20:12)
[2021-04-30] MEDS: MEROPENEM 1,000 MG in SODIUM CHLORIDE 0.9% 100 ML IV SCH ×3 (01:28→17:02)
[2021-04-30] MEDS: ACETAMINOPHEN 650MG/20.3ML UDC PO PRN ×3 (03:49→21:32)
[2021-04-30] MEDS: METHYLPREDNISOLONE SOD SUCC 40 MG/ML VIAL IV SCH ×3 (05:01→21:32)
[2021-04-30 05:56] LABS: CHLORIDE 109 mEq/L (98-107)
[2021-04-30 06:03] LABS: HEMATOCRIT. 27.9 % (36.0-48.0); HEMOGLOBIN. 9.5 g/dL (12.0-16.0); MEAN CORPUSCULAR HEMOGLOBIN 31.8 pg (28.0-32.0); MEAN CORPUSCULAR VOLUME 93.4 fL (81.0-99.0); MEAN PLATELET VOLUME 9.8 fl (7.4-10.4); PARTIAL THROMBOPLASTIN TIME 26.2 sec (23.4-31.0); PLATELET 477 x1000/uL (130-400); RED BLOOD CELL COUNT 2.98 mill/uL (4.2-5.4); RED CELL DISTRIBUTION WIDTH 13.8 % (11.6-14.6)
[2021-04-30 06:06] LABS: CREATINE KINASE 350 IU/L (26-192)
[2021-04-30 08:09] LABS: BG BASE EXCESS 2.7 mmol/L (-2.0-2.0); BG CARBOXYHEMOGLOBIN 0.3 % (0.5-1.5); BG DEOXYHEMOGLOBIN 6.4 % (0.0-5.0); BG HCO3 ACT 26.8 mmol/L (22.0-26.0); BG METHEMOGLOBIN 0.3 % (0.0-1.5); BG OXYGEN SATURATION 93.6 % (92.0-98.5); BG PCO2 39.3 mmHg (35.0-45.0); BG PH 7.452 (7.350-7.450); BG PO2 63.4 mmHg (75.0-100.0); BG SAMPLE SITE RIGHT RADIAL; BG TOTAL HEMOGLOBIN 11.1 g/dL (12.0-18.0); BG VENT MODE VENT- PRVC
[2021-04-30] MEDS: PANTOPRAZOLE SODIUM 40 MG/VIAL IV SCH (08:17)
[2021-04-30] MEDS: ASCORBIC ACID 500 MG TABLET PO SCH (08:17)
[2021-04-30] MEDS: THIAMINE HCL 100MG TABLET PO SCH (08:17)
[2021-04-30] MEDS: ENOXAPARIN 100MG/ML SYR SUBCUT SCH (08:18)
[2021-04-30] MEDS: ZINC SULFATE 220 MG ( 50 ) CAPSULE PO SCH (08:18)
[2021-04-30] MEDS: FENTANYL CITRATE/PF 2,500 MCG in SODIUM CHLORIDE 0.9% 200 ML IV PRN ×2 (08:19→17:04)
[2021-04-30 10:56] LABS: PLATELET ESTIMATE INCREASED
[2021-04-30] MEDS ORDERED: ENOXAPARIN 120MG/0.8ML SYR SUBCUT SCH (21:00)
[2021-05-01] VITALS (100 sets, daily range): BP systolic 66–178; BP diastolic 32–117
[2021-05-01] MEDS: IPRATROPIUM/ALBUTEROL 0.5-3(2.5)MG/3ML NEB HHN SCH ×6 (00:50→20:06)
[2021-05-01] MEDS: MEROPENEM 1,000 MG in SODIUM CHLORIDE 0.9% 100 ML IV SCH ×3 (01:46→18:11)
[2021-05-01] MEDS: FENTANYL CITRATE/PF 2,500 MCG in SODIUM CHLORIDE 0.9% 200 ML IV PRN ×3 (01:48→18:12)
[2021-05-01] MEDS: ACETAMINOPHEN 650MG/20.3ML UDC PO PRN ×2 (04:36→22:55)
[2021-05-01] MEDS: METHYLPREDNISOLONE SOD SUCC 40 MG/ML VIAL IV SCH ×3 (05:41→21:31)
[2021-05-01] MEDS: ZINC SULFATE 220 MG ( 50 ) CAPSULE PO SCH (08:34)
[2021-05-01] MEDS: THIAMINE HCL 100MG TABLET PO SCH (08:35)
[2021-05-01] MEDS: ASCORBIC ACID 500 MG TABLET PO SCH (08:35)
[2021-05-01 09:04] LABS: BG BASE EXCESS 3.3 mmol/L (-2.0-2.0); BG CARBOXYHEMOGLOBIN 0.3 % (0.5-1.5); BG FRACTION INSPIRED OXYGEN 65; BG METHEMOGLOBIN 0.1 % (0.0-1.5); BG OXYHEMOGLOBIN 94.6 % (94.0-97.0); BG PO2 69.7 mmHg (75.0-100.0); BG SAMPLE SITE RIGHT RADIAL; BG TOTAL HEMOGLOBIN 11.6 g/dL (12.0-18.0); BG VENT MODE VENT - PRVC
[2021-05-01] MEDS: PANTOPRAZOLE SODIUM 40 MG/VIAL IV SCH (09:18)
[2021-05-01 12:57] LABS: HEMATOCRIT. 32.8 % (36.0-48.0); HEMOGLOBIN. 10.5 g/dL (12.0-16.0); MEAN CORPUSCULAR HEMOGLOBIN 30.3 pg (28.0-32.0); MEAN CORPUSCULAR VOLUME 94.9 fL (81.0-99.0); MEAN PLATELET VOLUME 9.2 fl (7.4-10.4); PLATELET 674 x1000/uL (130-400); RED BLOOD CELL COUNT 3.46 mill/uL (4.2-5.4); RED CELL DISTRIBUTION WIDTH 14.1 % (11.6-14.6)
[2021-05-01 13:13] LABS: CHLORIDE 111 mEq/L (98-107)
[2021-05-01 13:15] LABS: PLATELET ESTIMATE INCREASED
[2021-05-01 13:17] LABS: INR 1.1; PARTIAL THROMBOPLASTIN TIME 21.7 sec (23.4-31.0); PROTHROMBIN TIME 11.5 sec (9.6-11.0)
[2021-05-02] VITALS (96 sets, daily range): BP systolic 74–187; BP diastolic 36–103
[2021-05-02] MEDS: IPRATROPIUM/ALBUTEROL 0.5-3(2.5)MG/3ML NEB HHN SCH ×6 (00:21→20:23)
[2021-05-02] MEDS: FENTANYL CITRATE/PF 2,500 MCG in SODIUM CHLORIDE 0.9% 200 ML IV PRN ×3 (00:37→16:47)
[2021-05-02] MEDS: MEROPENEM 1,000 MG in SODIUM CHLORIDE 0.9% 100 ML IV SCH ×3 (01:53→17:48)
[2021-05-02] MEDS: ACETAMINOPHEN 650MG/20.3ML UDC PO PRN ×2 (05:15→21:02)
[2021-05-02] MEDS: METHYLPREDNISOLONE SOD SUCC 40 MG/ML VIAL IV SCH ×3 (05:15→21:02)
[2021-05-02 08:25] LABS: BG BASE EXCESS 3.7 mmol/L (-2.0-2.0); BG DEOXYHEMOGLOBIN 3.4 % (0.0-5.0); BG METHEMOGLOBIN 0.3 % (0.0-1.5); BG OXYGEN SATURATION 96.6 % (92.0-98.5); BG OXYHEMOGLOBIN 96.3 % (94.0-97.0); BG PCO2 41.4 mmHg (35.0-45.0); BG PH 7.448 (7.350-7.450); BG PO2 83.1 mmHg (75.0-100.0); BG SAMPLE SITE RIGHT RADIAL; BG VENT MODE VENT- PRVC
[2021-05-02] MEDS: PANTOPRAZOLE SODIUM 40 MG/VIAL IV SCH (08:28)
[2021-05-02] MEDS: ASCORBIC ACID 500 MG TABLET PO SCH (08:28)
[2021-05-02] MEDS: THIAMINE HCL 100MG TABLET PO SCH (08:29)
[2021-05-02] MEDS: ZINC SULFATE 220 MG ( 50 ) CAPSULE PO SCH (08:29)
[2021-05-03] VITALS (96 sets, daily range): BP systolic 91–151; BP diastolic 55–119
[2021-05-03] MEDS: IPRATROPIUM/ALBUTEROL 0.5-3(2.5)MG/3ML NEB HHN SCH ×6 (00:22→20:26)
[2021-05-03] MEDS: FENTANYL CITRATE/PF 2,500 MCG in SODIUM CHLORIDE 0.9% 200 ML IV PRN ×3 (00:31→16:33)
[2021-05-03] MEDS: METHYLPREDNISOLONE SOD SUCC 40 MG/ML VIAL IV SCH ×3 (05:05→21:05)
[2021-05-03 06:31] LABS: CHLORIDE 102 mEq/L (98-107)
[2021-05-03] MEDS: PANTOPRAZOLE SODIUM 40 MG/VIAL IV SCH (08:18)
[2021-05-03] MEDS: ASCORBIC ACID 500 MG TABLET PO SCH (08:18)
[2021-05-03] MEDS: ZINC SULFATE 220 MG ( 50 ) CAPSULE PO SCH (08:18)
[2021-05-03] MEDS: THIAMINE HCL 100MG TABLET PO SCH (08:19)
[2021-05-03 08:25] LABS: BG BASE EXCESS 3.9 mmol/L (-2.0-2.0); BG CARBOXYHEMOGLOBIN 0.3 % (0.5-1.5); BG DEOXYHEMOGLOBIN 5.8 % (0.0-5.0); BG METHEMOGLOBIN 0.1 % (0.0-1.5); BG OXYGEN SATURATION 94.2 % (92.0-98.5); BG OXYHEMOGLOBIN 93.8 % (94.0-97.0); BG PCO2 40.5 mmHg (35.0-45.0); BG PH 7.458 (7.350-7.450); BG PO2 69.5 mmHg (75.0-100.0); BG SAMPLE SITE RIGHT RADIAL; BG TOTAL HEMOGLOBIN 11.5 g/dL (12.0-18.0); BG VENT MODE VENT- PRVC
[2021-05-04] VITALS (90 sets, daily range): BP systolic 88–166; BP diastolic 48–128
[2021-05-04] MEDS: FENTANYL CITRATE/PF 2,500 MCG in SODIUM CHLORIDE 0.9% 200 ML IV PRN ×2 (00:26→08:46)
[2021-05-04] MEDS: IPRATROPIUM/ALBUTEROL 0.5-3(2.5)MG/3ML NEB HHN SCH ×6 (00:51→20:56)
[2021-05-04] MEDS: METHYLPREDNISOLONE SOD SUCC 40 MG/ML VIAL IV SCH (05:32)
[2021-05-04 05:36] LABS: HEMATOCRIT. 31.2 % (36.0-48.0); HEMOGLOBIN. 10.3 g/dL (12.0-16.0); MEAN CORPUSCULAR HEMOGLOBIN 30.4 pg (28.0-32.0); MEAN CORPUSCULAR VOLUME 92.4 fL (81.0-99.0); MEAN PLATELET VOLUME 8.4 fl (7.4-10.4); PLATELET 569 x1000/uL (130-400); RED BLOOD CELL COUNT 3.37 mill/uL (4.2-5.4); RED CELL DISTRIBUTION WIDTH 13.5 % (11.6-14.6)
[2021-05-04 05:49] LABS: INR 1.1; PROTHROMBIN TIME 11.7 sec (9.6-11.0)
[2021-05-04 05:55] LABS: CHLORIDE 99 mEq/L (98-107)
[2021-05-04 06:11] LABS: PHOSPHORUS 3.2 mg/dL (2.5-4.9)
[2021-05-04 06:13] LABS: CREATINE KINASE 339 IU/L (26-192)
[2021-05-04] MEDS: THIAMINE HCL 100MG TABLET PO SCH (08:42)
[2021-05-04] MEDS: ZINC SULFATE 220 MG ( 50 ) CAPSULE PO SCH (08:42)
[2021-05-04] MEDS: ASCORBIC ACID 500 MG TABLET PO SCH (08:43)
[2021-05-04] MEDS: PANTOPRAZOLE SODIUM 40 MG/VIAL IV SCH ×2 (08:43→20:29)
[2021-05-04] MEDS ORDERED: MORPHINE SULFATE 2 MG/ML CPJ (NOT FOR IM USE) IV PRN (10:00)
[2021-05-04 14:17] LABS: PLATELET ESTIMATE INCREASED
[2021-05-04] MEDS ORDERED: LIDOCAINE HCL/EPINEPHRINE 1%-EPI 1:100,000 20 ML VIAL ONE (15:36)
[2021-05-04] MEDS: LORAZEPAM 2MG/ML CPJ IV PRN (16:47)
[2021-05-04] MEDS ORDERED: MIDAZOLAM HCL 2 MG/2 ML VIAL ONE (17:26)
[2021-05-04] MEDS ORDERED: ROCURONIUM BROMIDE 10MG/ML VIAL 5ML IV ONE ×2 (17:26→18:10)
[2021-05-04] MEDS ORDERED: FENTANYL CITRATE/PF 50MCG/ML 2ML VIAL ONE (17:26)
[2021-05-04] MEDS ORDERED: CEFAZOLIN SODIUM 1000MG/VIAL ONE (17:26)
[2021-05-04] MEDS ORDERED: LORAZEPAM 2MG/ML CPJ IV NR (17:30)
[2021-05-04] MEDS: DEXT 5%/0.9% NACL 1,000 ML IV SCH (20:38)
[2021-05-04] MEDS: KETOROLAC 30MG/ML VIAL IV PRN (20:39)
[2021-05-05] VITALS (102 sets, daily range): BP systolic 70–175; BP diastolic 34–114
[2021-05-05] MEDS: IPRATROPIUM/ALBUTEROL 0.5-3(2.5)MG/3ML NEB HHN SCH ×6 (00:33→20:01)
[2021-05-05] MEDS: FENTANYL CITRATE/PF 2,500 MCG in SODIUM CHLORIDE 0.9% 200 ML IV PRN (01:29)
[2021-05-05 05:44] LABS: BASOPHILS % 0.1 % (0.0-2.0); EOSINOPHILS % 1.1 % (0.0-5.0); HEMATOCRIT. 31.2 % (36.0-48.0); HEMOGLOBIN. 10.1 g/dL (12.0-16.0); MEAN CORPUSCULAR HEMOGLOBIN 30.3 pg (28.0-32.0); MEAN CORPUSCULAR VOLUME 93.4 fL (81.0-99.0); MEAN PLATELET VOLUME 7.9 fl (7.4-10.4); MONOCYTES % 8.3 % (2.0-8.0); NEUTROPHILS % 79.5 % (40.0-76.0); PLATELET 515 x1000/uL (130-400); RED BLOOD CELL COUNT 3.34 mill/uL (4.2-5.4)
[2021-05-05 05:45] LABS: INR 1.1; PROTHROMBIN TIME 12.1 sec (9.6-11.0)
[2021-05-05 05:51] LABS: CHLORIDE 101 mEq/L (98-107)
[2021-05-05] MEDS: KETOROLAC 30MG/ML VIAL IV PRN (06:01)
[2021-05-05] MEDS: PANTOPRAZOLE SODIUM 40 MG/VIAL IV SCH ×2 (08:29→22:20)
[2021-05-05] MEDS: LORAZEPAM 2MG/ML CPJ IV PRN (08:29)
[2021-05-05] MEDS: METHYLPREDNISOLONE SOD SUCC 40 MG/ML VIAL IV SCH (08:30)
[2021-05-05 08:52] LABS: BG BASE EXCESS 1.4 mmol/L (-2.0-2.0); BG CARBOXYHEMOGLOBIN 0.3 % (0.5-1.5); BG DEOXYHEMOGLOBIN 1.3 % (0.0-5.0); BG HCO3 ACT 25.2 mmol/L (22.0-26.0); BG METHEMOGLOBIN 0.3 % (0.0-1.5); BG OXYGEN SATURATION 98.7 % (92.0-98.5); BG OXYHEMOGLOBIN 98.1 % (94.0-97.0); BG PCO2 37.1 mmHg (35.0-45.0); BG PO2 140.6 mmHg (75.0-100.0); BG SAMPLE SITE RIGHT RADIAL; BG TOTAL HEMOGLOBIN 11.6 g/dL (12.0-18.0); BG VENT MODE VENT- PRVC
[2021-05-05] MEDS: ZINC SULFATE 220 MG ( 50 ) CAPSULE PO SCH (09:00)
[2021-05-05] MEDS: ASCORBIC ACID 500 MG TABLET PO SCH (09:00)
[2021-05-05] MEDS ORDERED: FENTANYL CITRATE/PF 50MCG/ML 2ML VIAL IV PRN ×2 (09:00→15:52)
[2021-05-05] MEDS: THIAMINE HCL 100MG TABLET PO SCH (09:00)
[2021-05-05] MEDS ORDERED: NALOXONE HCL 0.4MG/ML VIAL IV PRN (09:15)
[2021-05-05] MEDS ORDERED: LIDOCAINE HCL 1% 10 MG/ML 10ML VIAL ONE (09:16)
[2021-05-05] MEDS ORDERED: GENTAMICIN SULFATE 400 MG in SODIUM CHLORIDE 0.9% 100 ML IV NR (13:00)
[2021-05-05] MEDS ORDERED: CLINDAMYCIN 900 MG in DEXTROSE 5% WATER 50 ML IV SCH (14:00)
[2021-05-05] MEDS: DEXT 5%/0.9% NACL 1,000 ML IV SCH (14:00)
[2021-05-05] MEDS ORDERED: CLINDAMYCIN 900 MG PREMIX 50 ML IV NR (14:00)
[2021-05-05] MEDS ORDERED: VANCOMYCIN 1 G PREMIX 200 ML IV SCH (14:00)
[2021-05-05] MEDS ORDERED: FENTANYL CITRATE/PF 50MCG/ML 2ML VIAL ONE (15:26)
[2021-05-05] MEDS ORDERED: MIDAZOLAM HCL 5 MG/5 ML VIAL ONE (15:26)
[2021-05-05] MEDS ORDERED: MIDAZOLAM HCL 5 MG/5 ML VIAL IV PRN (15:51)
[2021-05-06] VITALS (41 sets, daily range): BP systolic 64–148; BP diastolic 32–92
[2021-05-06] MEDS: IPRATROPIUM/ALBUTEROL 0.5-3(2.5)MG/3ML NEB HHN SCH ×6 (00:05→20:40)
[2021-05-06 05:17] LABS: HEMATOCRIT. 31.5 % (36.0-48.0); HEMOGLOBIN. 10.2 g/dL (12.0-16.0); MEAN CORPUSCULAR HEMOGLOBIN 30.4 pg (28.0-32.0); MEAN PLATELET VOLUME 8.1 fl (7.4-10.4); PLATELET 470 x1000/uL (130-400); RED BLOOD CELL COUNT 3.35 mill/uL (4.2-5.4); RED CELL DISTRIBUTION WIDTH 14.1 % (11.6-14.6)
[2021-05-06 05:20] LABS: CHLORIDE 106 mEq/L (98-107)
[2021-05-06] MEDS: DEXT 5%/0.9% NACL 1,000 ML IV SCH (05:58)
[2021-05-06 07:36] LABS: PLATELET ESTIMATE SLIGHTLY INCREASED
[2021-05-06 08:41] LABS: BG BASE EXCESS 4.6 mmol/L (-2.0-2.0); BG CARBOXYHEMOGLOBIN 0.2 % (0.5-1.5); BG DEOXYHEMOGLOBIN 1.5 % (0.0-5.0); BG FRACTION INSPIRED OXYGEN 50; BG HCO3 ACT 27.8 mmol/L (22.0-26.0); BG METHEMOGLOBIN 0.3 % (0.0-1.5); BG OXYGEN SATURATION 98.5 % (92.0-98.5); BG PCO2 36.3 mmHg (35.0-45.0); BG PH 7.502 (7.350-7.450); BG PO2 109.7 mmHg (75.0-100.0); BG SAMPLE SITE RIGHT RADIAL; BG TOTAL HEMOGLOBIN 11.8 g/dL (12.0-18.0); BG VENT MODE VENT - PRVC
[2021-05-06] MEDS: THIAMINE HCL 100MG TABLET PO SCH (10:44)
[2021-05-06] MEDS: ASCORBIC ACID 500 MG TABLET PO SCH (10:44)
[2021-05-06] MEDS: ZINC SULFATE 220 MG ( 50 ) CAPSULE PO SCH (10:44)
[2021-05-06] MEDS: METHYLPREDNISOLONE SOD SUCC 40 MG/ML VIAL IV SCH (10:45)
[2021-05-06] MEDS: PANTOPRAZOLE SODIUM 40 MG/VIAL IV SCH ×2 (10:45→20:25)
[2021-05-06] MEDS: LORAZEPAM 2MG/ML CPJ IV PRN (11:07)
[2021-05-06] MEDS: ACETAMINOPHEN 650MG/20.3ML UDC PO PRN (11:27)
[2021-05-07] VITALS (12 sets, daily range): BP systolic 107–152; BP diastolic 50–76
[2021-05-07] MEDS: IPRATROPIUM/ALBUTEROL 0.5-3(2.5)MG/3ML NEB HHN SCH ×6 (00:33→20:36)
[2021-05-07 07:05] LABS: HEMATOCRIT. 30.7 % (36.0-48.0); HEMOGLOBIN. 10.2 g/dL (12.0-16.0); MEAN CORPUSCULAR HEMOGLOBIN 31.6 pg (28.0-32.0); MEAN CORPUSCULAR VOLUME 95.3 fL (81.0-99.0); MEAN PLATELET VOLUME 8.7 fl (7.4-10.4); PLATELET 345 x1000/uL (130-400); RED BLOOD CELL COUNT 3.22 mill/uL (4.2-5.4); RED CELL DISTRIBUTION WIDTH 14.5 % (11.6-14.6)
[2021-05-07 07:09] LABS: CHLORIDE 102 mEq/L (98-107)
[2021-05-07 07:33] LABS: PHOSPHORUS 2.1 mg/dL (2.5-4.9)
[2021-05-07 08:43] LABS: PLATELET ESTIMATE NORMAL
[2021-05-07] MEDS: ASCORBIC ACID 500 MG TABLET PO SCH (09:02)
[2021-05-07] MEDS: ZINC SULFATE 220 MG ( 50 ) CAPSULE PO SCH (09:02)
[2021-05-07] MEDS: THIAMINE HCL 100MG TABLET PO SCH (09:02)
[2021-05-07] MEDS: PANTOPRAZOLE SODIUM 40 MG/VIAL IV SCH ×2 (09:02→21:57)
[2021-05-07] MEDS: METHYLPREDNISOLONE SOD SUCC 40 MG/ML VIAL IV SCH (09:02)
[2021-05-07] MEDS: LORAZEPAM 2MG/ML CPJ IV PRN (10:00)
[2021-05-07] MEDS: FENTANYL CITRATE/PF 50MCG/ML 2ML VIAL IV PRN (10:04)
[2021-05-07] MEDS ORDERED: POTASSIUM PHOS,M-BASIC-D-BASIC 20 MMOL in DEXT 5% WATER 243.3333 ML IV NR (11:00)
[2021-05-07] MEDS: ACETAMINOPHEN 650MG/20.3ML UDC PO PRN (12:43)
[2021-05-07 13:48] LABS: BG BASE EXCESS -1.8 mmol/L (-2.0-2.0); BG CARBOXYHEMOGLOBIN 0.3 % (0.5-1.5); BG DEOXYHEMOGLOBIN 2.8 % (0.0-5.0); BG FRACTION INSPIRED OXYGEN 40; BG HCO3 ACT 19.4 mmol/L (22.0-26.0); BG METHEMOGLOBIN 0.5 % (0.0-1.5); BG OXYGEN SATURATION 97.2 % (92.0-98.5); BG OXYHEMOGLOBIN 96.4 % (94.0-97.0); BG PCO2 23.4 mmHg (35.0-45.0); BG PH 7.537 (7.350-7.450); BG PO2 88.2 mmHg (75.0-100.0); BG SAMPLE SITE RIGHT RADIAL; BG TOTAL HEMOGLOBIN 11.2 g/dL (12.0-18.0); BG VENT MODE VENT - AC
[2021-05-07] MEDS: DOCUSATE SODIUM SUGAR FREE 100MG/10ML UDC NG SCH (17:22)
[2021-05-07] MEDS: BISACODYL 10MG SUPP PR SCH (17:22)
[2021-05-07] MEDS: ENOXAPARIN 120MG/0.8ML SYR SUBCUT SCH (17:23)
[2021-05-07] MEDS ORDERED: IOHEXOL-300 100 ML BOTTLE ONE (21:34)
[2021-05-08] VITALS (12 sets, daily range): BP systolic 103–128; BP diastolic 52–65
[2021-05-08] MEDS: IPRATROPIUM/ALBUTEROL 0.5-3(2.5)MG/3ML NEB HHN SCH ×6 (00:54→20:46)
[2021-05-08] MEDS: ACETAMINOPHEN 650MG/20.3ML UDC PO PRN (04:09)
[2021-05-08] MEDS: ENOXAPARIN 120MG/0.8ML SYR SUBCUT SCH ×2 (05:03→18:47)
[2021-05-08] MEDS: METHYLPREDNISOLONE SOD SUCC 40 MG/ML VIAL IV SCH (09:34)
[2021-05-08] MEDS: PANTOPRAZOLE SODIUM 40 MG/VIAL IV SCH ×2 (09:34→21:37)
[2021-05-08] MEDS: ZINC SULFATE 220 MG ( 50 ) CAPSULE PO SCH (09:35)
[2021-05-08] MEDS: THIAMINE HCL 100MG TABLET PO SCH (09:35)
[2021-05-08] MEDS: BISACODYL 10MG SUPP PR SCH (09:35)
[2021-05-08] MEDS: ASCORBIC ACID 500 MG TABLET PO SCH (09:35)
[2021-05-08] MEDS: DOCUSATE SODIUM SUGAR FREE 100MG/10ML UDC NG SCH ×2 (09:35→17:28)
[2021-05-08 10:15] LABS: HEMATOCRIT. 31.4 % (36.0-48.0); HEMOGLOBIN. 10.1 g/dL (12.0-16.0); MEAN CORPUSCULAR HEMOGLOBIN 30.1 pg (28.0-32.0); MEAN CORPUSCULAR VOLUME 93.3 fL (81.0-99.0); MEAN PLATELET VOLUME 8.5 fl (7.4-10.4); PLATELET 313 x1000/uL (130-400); RED BLOOD CELL COUNT 3.36 mill/uL (4.2-5.4); RED CELL DISTRIBUTION WIDTH 14.3 % (11.6-14.6)
[2021-05-08 10:20] LABS: CHLORIDE 104 mEq/L (98-107)
[2021-05-08 10:31] LABS: PHOSPHORUS 2.5 mg/dL (2.5-4.9)
[2021-05-08 10:33] LABS: CREATINE KINASE 127 IU/L (26-192)
[2021-05-08] MEDS: COLISTIMETHATE SODIUM 150MG/VIAL INH SCH (11:34)
[2021-05-08 12:29] LABS: BG BASE EXCESS 5.8 mmol/L (-2.0-2.0); BG CARBOXYHEMOGLOBIN 0.3 % (0.5-1.5); BG DEOXYHEMOGLOBIN 4.8 % (0.0-5.0); BG FRACTION INSPIRED OXYGEN 50; BG HCO3 ACT 28.3 mmol/L (22.0-26.0); BG METHEMOGLOBIN 0.2 % (0.0-1.5); BG OXYGEN SATURATION 95.2 % (92.0-98.5); BG OXYHEMOGLOBIN 94.7 % (94.0-97.0); BG PCO2 33.4 mmHg (35.0-45.0); BG PH 7.546 (7.350-7.450); BG SAMPLE SITE RIGHT RADIAL; BG TOTAL HEMOGLOBIN 10.2 g/dL (12.0-18.0); BG TOTAL RESPIRATORY RATE 35 b/min; BG VENT MODE VENT - AC
[2021-05-08 13:47] LABS: PLATELET ESTIMATE NORMAL
[2021-05-08] MEDS ORDERED: MEROPENEM 1,000 MG in SODIUM CHLORIDE 0.9% 100 ML IV SCH (18:00)
[2021-05-08] MEDS: METOCLOPRAMIDE HCL 10MG/2ML VIAL IV SCH (18:47)
[2021-05-08] MEDS: MEROPENEM 1,000 MG in SODIUM CHLORIDE 0.9% 100 ML IV SCH (19:45)
[2021-05-09] VITALS (15 sets, daily range): BP systolic 118–147; BP diastolic 52–81
[2021-05-09] MEDS: METOCLOPRAMIDE HCL 10MG/2ML VIAL IV SCH ×4 (00:14→17:31)
[2021-05-09] MEDS: ACETAMINOPHEN 650MG/20.3ML UDC PO PRN (00:15)
[2021-05-09] MEDS: IPRATROPIUM/ALBUTEROL 0.5-3(2.5)MG/3ML NEB HHN SCH ×6 (00:20→20:46)
[2021-05-09] MEDS: MEROPENEM 1,000 MG in SODIUM CHLORIDE 0.9% 100 ML IV SCH ×3 (03:45→21:22)
[2021-05-09] MEDS: ENOXAPARIN 120MG/0.8ML SYR SUBCUT SCH ×2 (06:38→17:30)
[2021-05-09] MEDS ORDERED: METHYLPREDNISOLONE SOD SUCC 40 MG/ML VIAL IV SCH (09:00)
[2021-05-09] MEDS: PANTOPRAZOLE SODIUM 40 MG/VIAL IV SCH ×2 (09:15→21:22)
[2021-05-09] MEDS: BISACODYL 10MG SUPP PR SCH (09:16)
[2021-05-09] MEDS: DOCUSATE SODIUM SUGAR FREE 100MG/10ML UDC NG SCH ×2 (09:16→17:00)
[2021-05-09] MEDS: THIAMINE HCL 100MG TABLET PO SCH (09:16)
[2021-05-09] MEDS: ASCORBIC ACID 500 MG TABLET PO SCH (09:16)
[2021-05-09] MEDS: ZINC SULFATE 220 MG ( 50 ) CAPSULE PO SCH (09:16)
[2021-05-09 09:25] LABS: HEMATOCRIT. 27.6 % (36.0-48.0); MEAN CORPUSCULAR HEMOGLOBIN 30.3 pg (28.0-32.0); MEAN CORPUSCULAR VOLUME 93.1 fL (81.0-99.0); MEAN PLATELET VOLUME 9.2 fl (7.4-10.4); PLATELET 264 x1000/uL (130-400); RED BLOOD CELL COUNT 2.96 mill/uL (4.2-5.4); RED CELL DISTRIBUTION WIDTH 14.4 % (11.6-14.6)
[2021-05-09 09:32] LABS: CHLORIDE 107 mEq/L (98-107)
[2021-05-09] MEDS ORDERED: POTASSIUM CHLORIDE 20MEQ TABLET SR PO SCH (12:30)
[2021-05-09] MEDS: LORAZEPAM 2MG/ML CPJ IV PRN (13:13)
[2021-05-09] MEDS: FENTANYL CITRATE/PF 50MCG/ML 2ML VIAL IV PRN (13:14)
[2021-05-09 14:42] LABS: BG BASE EXCESS 3.2 mmol/L (-2.0-2.0); BG CARBOXYHEMOGLOBIN 0.3 % (0.5-1.5); BG DEOXYHEMOGLOBIN 3.2 % (0.0-5.0); BG FRACTION INSPIRED OXYGEN 60; BG HCO3 ACT 25.1 mmol/L (22.0-26.0); BG METHEMOGLOBIN 0.3 % (0.0-1.5); BG OXYGEN SATURATION 96.8 % (92.0-98.5); BG OXYHEMOGLOBIN 96.2 % (94.0-97.0); BG PCO2 29.3 mmHg (35.0-45.0); BG PO2 83.4 mmHg (75.0-100.0); BG SAMPLE SITE LEFT RADIAL; BG TOTAL HEMOGLOBIN 11.1 g/dL (12.0-18.0); BG VENT MODE VENT - AC
[2021-05-09 15:49] LABS: PLATELET ESTIMATE NORMAL
[2021-05-09] MEDS: ACETYLCYSTEINE 100MG/ML 10% VIAL 4ML INH SCH (21:22)
[2021-05-10] VITALS (36 sets, daily range): BP systolic 96–157; BP diastolic 56–92
[2021-05-10] MEDS: METOCLOPRAMIDE HCL 10MG/2ML VIAL IV SCH ×5 (00:21→23:32)
[2021-05-10] MEDS: ACETYLCYSTEINE 100MG/ML 10% VIAL 4ML INH SCH ×3 (00:24→16:12)
[2021-05-10] MEDS: IPRATROPIUM/ALBUTEROL 0.5-3(2.5)MG/3ML NEB HHN SCH ×6 (00:24→20:43)
[2021-05-10] MEDS: COLISTIMETHATE SODIUM 150MG/VIAL INH SCH ×3 (00:25→20:43)
[2021-05-10] MEDS: MEROPENEM 1,000 MG in SODIUM CHLORIDE 0.9% 100 ML IV SCH ×3 (03:25→21:02)
[2021-05-10] MEDS: LORAZEPAM 2MG/ML CPJ IV PRN ×2 (05:45→11:55)
[2021-05-10] MEDS: FENTANYL CITRATE/PF 50MCG/ML 2ML VIAL IV PRN ×2 (05:48→11:37)
[2021-05-10 06:08] LABS: BG BASE EXCESS 2.6 mmol/L (-2.0-2.0); BG CARBOXYHEMOGLOBIN 0.3 % (0.5-1.5); BG DEOXYHEMOGLOBIN 7.2 % (0.0-5.0); BG FRACTION INSPIRED OXYGEN 100; BG HCO3 ACT 25.9 mmol/L (22.0-26.0); BG METHEMOGLOBIN 0.2 % (0.0-1.5); BG OXYGEN SATURATION 92.8 % (92.0-98.5); BG OXYHEMOGLOBIN 92.3 % (94.0-97.0); BG PCO2 35.2 mmHg (35.0-45.0); BG PH 7.484 (7.350-7.450); BG PO2 64.5 mmHg (75.0-100.0); BG SAMPLE SITE PL; BG TOTAL HEMOGLOBIN 11.5 g/dL (12.0-18.0); BG TOTAL RESPIRATORY RATE 32 b/min; BG VENT MODE VENT - AC
[2021-05-10] MEDS ORDERED: LIDOCAINE HCL/EPINEPHRINE 1%-EPI 1:100,000 20 ML VIAL INFIL SCH (06:30)
[2021-05-10] MEDS: DOCUSATE SODIUM SUGAR FREE 100MG/10ML UDC NG SCH ×2 (09:32→17:02)
[2021-05-10] MEDS: ASCORBIC ACID 500 MG TABLET PO SCH (09:33)
[2021-05-10] MEDS: ENOXAPARIN 120MG/0.8ML SYR SUBCUT SCH ×2 (09:33→17:04)
[2021-05-10] MEDS: PREDNISONE 10MG TABLET PO SCH (09:33)
[2021-05-10] MEDS: THIAMINE HCL 100MG TABLET PO SCH (09:33)
[2021-05-10] MEDS: ZINC SULFATE 220 MG ( 50 ) CAPSULE PO SCH (09:33)
[2021-05-10] MEDS: BISACODYL 10MG SUPP PR SCH (09:33)
[2021-05-10] MEDS: PANTOPRAZOLE SODIUM 40 MG/VIAL IV SCH ×2 (09:35→21:01)
[2021-05-10 11:10] LABS: HEMATOCRIT. 29.6 % (36.0-48.0); HEMOGLOBIN. 9.6 g/dL (12.0-16.0); MEAN CORPUSCULAR HEMOGLOBIN 30.4 pg (28.0-32.0); MEAN CORPUSCULAR VOLUME 93.6 fL (81.0-99.0); MEAN PLATELET VOLUME 8.9 fl (7.4-10.4); PLATELET 255 x1000/uL (130-400); RED BLOOD CELL COUNT 3.17 mill/uL (4.2-5.4); RED CELL DISTRIBUTION WIDTH 14.9 % (11.6-14.6)
[2021-05-10 11:21] LABS: CHLORIDE 108 mEq/L (98-107)
[2021-05-10 11:26] LABS: PHOSPHORUS 2.8 mg/dL (2.5-4.9)
[2021-05-10] MEDS: ACETAMINOPHEN 650MG/20.3ML UDC PO PRN (11:55)
[2021-05-10] MEDS ORDERED: POTASSIUM CHLORIDE 20MEQ/PACKET GT SCH (12:30)
[2021-05-10 12:31] LABS: PLATELET ESTIMATE NORMAL
[2021-05-10] MEDS: MIDAZOLAM HCL 100 MG in SODIUM CHLORIDE 0.9% 100 ML IV PRN ×2 (12:45→21:05)
[2021-05-10] MEDS ORDERED: MIDAZOLAM 100MG/100ML PMX 100 ML IV PRN (13:00)
[2021-05-10] MEDS ORDERED: VECURONIUM BROMIDE 10 MG/VIAL IV SCH (13:15)
[2021-05-10] MEDS: FENTANYL CITRATE/PF 2,500 MCG in SODIUM CHLORIDE 0.9% 200 ML IV PRN (16:45)
[2021-05-10] MEDS ORDERED: GENTAMICIN SULFATE 150 MG in SODIUM CHLORIDE 0.9% 100 ML IV NR (17:00)
[2021-05-10] MEDS ORDERED: VANCOMYCIN 2,000 MG in DEXT 5% WATER 500 ML IV NR (17:30)
[2021-05-11] VITALS (83 sets, daily range): BP systolic 89–116; BP diastolic 28–66
[2021-05-11] MEDS: IPRATROPIUM/ALBUTEROL 0.5-3(2.5)MG/3ML NEB HHN SCH ×6 (00:15→20:25)
[2021-05-11] MEDS: ACETYLCYSTEINE 100MG/ML 10% VIAL 4ML INH SCH ×3 (00:15→16:12)
[2021-05-11] MEDS: MEROPENEM 1,000 MG in SODIUM CHLORIDE 0.9% 100 ML IV SCH ×3 (03:47→20:48)
[2021-05-11] MEDS ORDERED: GENTAMICIN 120MG PREMIX 100 ML IV SCH (05:00)
[2021-05-11] MEDS: METOCLOPRAMIDE HCL 10MG/2ML VIAL IV SCH ×4 (05:02→23:32)
[2021-05-11] MEDS: ENOXAPARIN 120MG/0.8ML SYR SUBCUT SCH (05:03)
[2021-05-11] MEDS: VANCOMYCIN 1250MG in DEXTROSE 5% WATER 250ML IV SCH ×2 (05:03→17:42)
[2021-05-11 06:00] LABS: HEMATOCRIT. 28.7 % (36.0-48.0); HEMOGLOBIN. 9.3 g/dL (12.0-16.0); MEAN CORPUSCULAR HEMOGLOBIN 30.4 pg (28.0-32.0); MEAN CORPUSCULAR VOLUME 93.8 fL (81.0-99.0); MEAN PLATELET VOLUME 10.3 fl (7.4-10.4); PLATELET 210 x1000/uL (130-400); RED BLOOD CELL COUNT 3.06 mill/uL (4.2-5.4); RED CELL DISTRIBUTION WIDTH 15.2 % (11.6-14.6)
[2021-05-11 06:58] LABS: CHLORIDE 108 mEq/L (98-107)
[2021-05-11] MEDS: COLISTIMETHATE SODIUM 150MG/VIAL INH SCH ×2 (07:58→20:25)
[2021-05-11] MEDS: PANTOPRAZOLE SODIUM 40 MG/VIAL IV SCH ×2 (08:15→21:23)
[2021-05-11] MEDS: ASCORBIC ACID 500 MG TABLET PO SCH (08:15)
[2021-05-11] MEDS: THIAMINE HCL 100MG TABLET PO SCH (08:15)
[2021-05-11] MEDS: PREDNISONE 10MG TABLET PO SCH (08:15)
[2021-05-11] MEDS: ZINC SULFATE 220 MG ( 50 ) CAPSULE PO SCH (08:15)
[2021-05-11] MEDS: DOCUSATE SODIUM SUGAR FREE 100MG/10ML UDC NG SCH ×2 (08:16→17:00)
[2021-05-11] MEDS: BISACODYL 10MG SUPP PR SCH (08:17)
[2021-05-11] MEDS ORDERED: LIDOCAINE HCL 1% 10 MG/ML 10ML VIAL ONE (08:35)
[2021-05-11 08:49] LABS: BG BASE EXCESS 2.3 mmol/L (-2.0-2.0); BG CARBOXYHEMOGLOBIN 0.1 % (0.5-1.5); BG FRACTION INSPIRED OXYGEN 90; BG HCO3 ACT 26.6 mmol/L (22.0-26.0); BG METHEMOGLOBIN 0.3 % (0.0-1.5); BG OXYHEMOGLOBIN 97.6 % (94.0-97.0); BG PH 7.441 (7.350-7.450); BG PO2 113.2 mmHg (75.0-100.0); BG SAMPLE SITE LEFT RADIAL; BG TOTAL HEMOGLOBIN 8.4 g/dL (12.0-18.0); BG TOTAL RESPIRATORY RATE 37 b/min; BG VENT MODE VENT - AC
[2021-05-11] MEDS: MIDAZOLAM HCL 100 MG in SODIUM CHLORIDE 0.9% 100 ML IV PRN (08:52)
[2021-05-11 10:23] LABS: PLATELET ESTIMATE NORMAL
[2021-05-11] MEDS: ACETAMINOPHEN 650MG/20.3ML UDC PO PRN (12:00)
[2021-05-11] MEDS: GENTAMICIN 120MG PREMIX 100 ML IV SCH (13:24)
[2021-05-11] MEDS: FENTANYL CITRATE/PF 2,500 MCG in SODIUM CHLORIDE 0.9% 200 ML IV PRN (14:32)
[2021-05-11] MEDS: ENOXAPARIN 100MG/ML SYR SUBCUT SCH (17:42)
[2021-05-12] VITALS (80 sets, daily range): BP systolic 90–156; BP diastolic 52–91
[2021-05-12] MEDS: IPRATROPIUM/ALBUTEROL 0.5-3(2.5)MG/3ML NEB HHN SCH ×6 (00:28→19:54)
[2021-05-12] MEDS: ACETYLCYSTEINE 100MG/ML 10% VIAL 4ML INH SCH ×3 (00:35→15:59)
[2021-05-12] MEDS: GENTAMICIN 120MG PREMIX 100 ML IV SCH ×2 (01:28→13:04)
[2021-05-12] MEDS: MEROPENEM 1,000 MG in SODIUM CHLORIDE 0.9% 100 ML IV SCH ×3 (03:49→19:55)
[2021-05-12 05:52] LABS: HEMATOCRIT. 26.4 % (36.0-48.0); HEMOGLOBIN. 8.5 g/dL (12.0-16.0); MEAN CORPUSCULAR HEMOGLOBIN 29.9 pg (28.0-32.0); MEAN CORPUSCULAR VOLUME 93.2 fL (81.0-99.0); MEAN PLATELET VOLUME 9.7 fl (7.4-10.4); PLATELET 185 x1000/uL (130-400); RED BLOOD CELL COUNT 2.83 mill/uL (4.2-5.4); RED CELL DISTRIBUTION WIDTH 14.9 % (11.6-14.6)
[2021-05-12] MEDS: METOCLOPRAMIDE HCL 10MG/2ML VIAL IV SCH ×3 (05:57→17:04)
[2021-05-12] MEDS: ENOXAPARIN 100MG/ML SYR SUBCUT SCH ×2 (05:57→17:03)
[2021-05-12] MEDS: VANCOMYCIN 1250MG in DEXTROSE 5% WATER 250ML IV SCH (05:57)
[2021-05-12 06:00] LABS: CHLORIDE 106 mEq/L (98-107)
[2021-05-12 06:11] LABS: VANCOMYCIN TROUGH 18.7 ug/mL (5.0-10.0)
[2021-05-12] MEDS: COLISTIMETHATE SODIUM 150MG/VIAL INH SCH ×2 (07:35→18:00)
[2021-05-12] MEDS: ACETAMINOPHEN 650MG/20.3ML UDC PO PRN (07:46)
[2021-05-12] MEDS: ZINC SULFATE 220 MG ( 50 ) CAPSULE PO SCH (08:07)
[2021-05-12] MEDS: PANTOPRAZOLE SODIUM 40 MG/VIAL IV SCH ×2 (08:07→20:28)
[2021-05-12] MEDS: THIAMINE HCL 100MG TABLET PO SCH (08:07)
[2021-05-12] MEDS: MIDAZOLAM HCL 100 MG in SODIUM CHLORIDE 0.9% 100 ML IV PRN (08:07)
[2021-05-12] MEDS: ASCORBIC ACID 500 MG TABLET PO SCH (08:07)
[2021-05-12] MEDS: PREDNISONE 10MG TABLET PO SCH (08:08)
[2021-05-12] MEDS: BISACODYL 10MG SUPP PR SCH (08:09)
[2021-05-12] MEDS: DOCUSATE SODIUM SUGAR FREE 100MG/10ML UDC NG SCH ×2 (08:09→17:03)
[2021-05-12 08:32] LABS: BG BASE EXCESS 6.5 mmol/L (-2.0-2.0); BG CARBOXYHEMOGLOBIN 0.3 % (0.5-1.5); BG DEOXYHEMOGLOBIN 2.8 % (0.0-5.0); BG FRACTION INSPIRED OXYGEN 75; BG HCO3 ACT 30.5 mmol/L (22.0-26.0); BG METHEMOGLOBIN 0.1 % (0.0-1.5); BG OXYGEN SATURATION 97.2 % (92.0-98.5); BG OXYHEMOGLOBIN 96.8 % (94.0-97.0); BG PCO2 41.5 mmHg (35.0-45.0); BG PH 7.484 (7.350-7.450); BG PO2 92.1 mmHg (75.0-100.0); BG SAMPLE SITE LEFT RADIAL; BG TOTAL HEMOGLOBIN 9.4 g/dL (12.0-18.0); BG TOTAL RESPIRATORY RATE 39 b/min; BG VENT MODE VENT - AC
[2021-05-12] MEDS ORDERED: FENTANYL CITRATE/PF 50MCG/ML 2ML VIAL IV ONE (08:45)
[2021-05-12] MEDS ORDERED: FENTANYL CITRATE/PF 50MCG/ML 2ML VIAL IV PRN (09:15)
[2021-05-12] MEDS ORDERED: FENTANYL CITRATE/PF 50MCG/ML 2ML VIAL IV NR (09:15)
[2021-05-12 16:07] LABS: PLATELET ESTIMATE NORMAL
[2021-05-12] MEDS: VANCOMYCIN 1 G PREMIX 200 ML IV SCH (20:28)
[2021-05-13] VITALS (52 sets, daily range): BP systolic 96–157; BP diastolic 48–91
[2021-05-13] MEDS: IPRATROPIUM/ALBUTEROL 0.5-3(2.5)MG/3ML NEB HHN SCH ×6 (00:09→20:23)
[2021-05-13] MEDS: ACETYLCYSTEINE 100MG/ML 10% VIAL 4ML INH SCH ×3 (00:09→16:15)
[2021-05-13] MEDS: METOCLOPRAMIDE HCL 10MG/2ML VIAL IV SCH ×5 (01:20→23:39)
[2021-05-13] MEDS: GENTAMICIN 120MG PREMIX 100 ML IV SCH ×2 (01:21→16:35)
[2021-05-13] MEDS: FENTANYL CITRATE/PF 50MCG/ML 2ML VIAL IV PRN ×3 (03:31→09:26)
[2021-05-13] MEDS: ENOXAPARIN 100MG/ML SYR SUBCUT SCH ×2 (05:09→18:59)
[2021-05-13] MEDS: MEROPENEM 1,000 MG in SODIUM CHLORIDE 0.9% 100 ML IV SCH ×3 (05:09→20:47)
[2021-05-13 06:01] LABS: HEMATOCRIT. 29.4 % (36.0-48.0); HEMOGLOBIN. 9.5 g/dL (12.0-16.0); MEAN CORPUSCULAR HEMOGLOBIN 30.2 pg (28.0-32.0); MEAN CORPUSCULAR VOLUME 92.9 fL (81.0-99.0); MEAN PLATELET VOLUME 9.8 fl (7.4-10.4); PLATELET 206 x1000/uL (130-400); RED BLOOD CELL COUNT 3.16 mill/uL (4.2-5.4); RED CELL DISTRIBUTION WIDTH 14.8 % (11.6-14.6)
[2021-05-13 06:10] LABS: CHLORIDE 100 mEq/L (98-107)
[2021-05-13] MEDS: THIAMINE HCL 100MG TABLET PO SCH (08:03)
[2021-05-13] MEDS: BISACODYL 10MG SUPP PR SCH (08:03)
[2021-05-13] MEDS: PANTOPRAZOLE SODIUM 40 MG/VIAL IV SCH ×2 (08:03→20:47)
[2021-05-13] MEDS: ASCORBIC ACID 500 MG TABLET PO SCH (08:03)
[2021-05-13] MEDS: ZINC SULFATE 220 MG ( 50 ) CAPSULE PO SCH (08:03)
[2021-05-13] MEDS: DOCUSATE SODIUM SUGAR FREE 100MG/10ML UDC NG SCH ×2 (08:03→16:35)
[2021-05-13] MEDS: VANCOMYCIN 1 G PREMIX 200 ML IV SCH ×2 (08:04→20:47)
[2021-05-13] MEDS ORDERED: CALCIUM CHLORIDE 1GM/10ML SYR IV ONE (08:27)
[2021-05-13] MEDS ORDERED: EPINEPHRINE 0.1MG/ML (1:10,000) 10ML SYR ONE (08:27)
[2021-05-13] MEDS ORDERED: SODIUM BICARBONATE 8.4% 1 MEQ/ML 50ML SYR IV ONE (08:27)
[2021-05-13] MEDS: COLISTIMETHATE SODIUM 150MG/VIAL INH SCH (08:47)
[2021-05-13] MEDS: LORAZEPAM 2MG/ML CPJ IV PRN (10:15)
[2021-05-13] MEDS: ACETAMINOPHEN 650MG/20.3ML UDC PO PRN (12:55)
[2021-05-13] MEDS ORDERED: LORAZEPAM 2MG/ML CPJ IV SCH (13:45)
[2021-05-13 16:56] LABS: NUCLEATED RED BLOOD CELLS 1 /100 WBC; PLATELET ESTIMATE NORMAL
[2021-05-13] MEDS ORDERED: MIDAZOLAM 100MG/100ML PMX 100 ML IV PRN (19:00)
[2021-05-13] MEDS: QUETIAPINE FUMARATE 25MG TABLET PO SCH (20:48)
[2021-05-13] MEDS: FENTANYL CITRATE/PF 2,500 MCG in SODIUM CHLORIDE 0.9% 200 ML IV PRN (20:49)
[2021-05-13] MEDS: LACTULOSE 20G/30ML UDC PO SCH (21:05)
[2021-05-13] MEDS: MIDAZOLAM HCL 100 MG in SODIUM CHLORIDE 0.9% 100 ML IV PRN (21:05)
[2021-05-14] VITALS (94 sets, daily range): BP systolic 91–129; BP diastolic 55–80
[2021-05-14] MEDS: IPRATROPIUM/ALBUTEROL 0.5-3(2.5)MG/3ML NEB HHN SCH ×6 (00:39→20:47)
[2021-05-14] MEDS: ACETYLCYSTEINE 100MG/ML 10% VIAL 4ML INH SCH ×2 (00:40→09:06)
[2021-05-14] MEDS: GENTAMICIN 120MG PREMIX 100 ML IV SCH (01:28)
[2021-05-14] MEDS: LACTULOSE 20G/30ML UDC PO SCH ×3 (06:00→22:00)
[2021-05-14 06:18] LABS: HEMOGLOBIN. 8.5 g/dL (12.0-16.0); MEAN CORPUSCULAR HEMOGLOBIN 30.3 pg (28.0-32.0); MEAN CORPUSCULAR VOLUME 92.7 fL (81.0-99.0); MEAN PLATELET VOLUME 9.9 fl (7.4-10.4); PLATELET 104 x1000/uL (130-400); RED CELL DISTRIBUTION WIDTH 14.9 % (11.6-14.6)
[2021-05-14 06:31] LABS: CHLORIDE 99 mEq/L (98-107)
[2021-05-14] MEDS: METOCLOPRAMIDE HCL 10MG/2ML VIAL IV SCH ×3 (06:41→17:04)
[2021-05-14] MEDS: VANCOMYCIN 1 G PREMIX 200 ML IV SCH ×2 (08:32→20:18)
[2021-05-14] MEDS: QUETIAPINE FUMARATE 25MG TABLET PO SCH ×2 (08:32→20:18)
[2021-05-14] MEDS: PANTOPRAZOLE SODIUM 40 MG/VIAL IV SCH ×2 (08:32→20:18)
[2021-05-14] MEDS: ZINC SULFATE 220 MG ( 50 ) CAPSULE PO SCH (08:32)
[2021-05-14] MEDS: DOCUSATE SODIUM SUGAR FREE 100MG/10ML UDC NG SCH ×2 (08:32→17:04)
[2021-05-14] MEDS: THIAMINE HCL 100MG TABLET PO SCH (08:32)
[2021-05-14] MEDS: ASCORBIC ACID 500 MG TABLET PO SCH (08:32)
[2021-05-14] MEDS: BISACODYL 10MG SUPP PR SCH (08:33)
[2021-05-14 10:14] LABS: ATYPICAL LYMPHOCYTES 1; PLATELET ESTIMATE SLIGHTLY DECREASED
[2021-05-14] MEDS: MIDAZOLAM HCL 100 MG in SODIUM CHLORIDE 0.9% 100 ML IV PRN (11:36)
[2021-05-14] MEDS: MEROPENEM 1,000 MG in SODIUM CHLORIDE 0.9% 100 ML IV SCH ×2 (14:43→22:02)
[2021-05-14] MEDS ORDERED: GENTAMICIN SULFATE 120 MG in SODIUM CHLORIDE 0.9% 100 ML IV NR (15:15)
[2021-05-14] MEDS: ENOXAPARIN 100MG/ML SYR SUBCUT SCH (17:04)
[2021-05-15] VITALS (94 sets, daily range): BP systolic 91–136; BP diastolic 49–75
[2021-05-15] MEDS: IPRATROPIUM/ALBUTEROL 0.5-3(2.5)MG/3ML NEB HHN SCH ×6 (00:12→20:03)
[2021-05-15] MEDS: METOCLOPRAMIDE HCL 10MG/2ML VIAL IV SCH ×4 (00:27→17:32)
[2021-05-15] MEDS: GENTAMICIN SULFATE 120 MG in SODIUM CHLORIDE 0.9% 100 ML IV SCH ×2 (02:16→14:17)
[2021-05-15] MEDS: FENTANYL CITRATE/PF 2,500 MCG in SODIUM CHLORIDE 0.9% 200 ML IV PRN ×2 (02:19→22:05)
[2021-05-15 05:18] LABS: HEMOGLOBIN. 7.7 g/dL (12.0-16.0); MEAN CORPUSCULAR HEMOGLOBIN 30.2 pg (28.0-32.0); MEAN CORPUSCULAR VOLUME 90.6 fL (81.0-99.0); MEAN PLATELET VOLUME 9.4 fl (7.4-10.4); RED BLOOD CELL COUNT 2.54 mill/uL (4.2-5.4); RED CELL DISTRIBUTION WIDTH 14.8 % (11.6-14.6)
[2021-05-15 05:19] LABS: CHLORIDE 100 mEq/L (98-107)
[2021-05-15] MEDS: LACTULOSE 20G/30ML UDC PO SCH ×3 (06:00→21:22)
[2021-05-15] MEDS: ENOXAPARIN 100MG/ML SYR SUBCUT SCH ×2 (06:00→17:32)
[2021-05-15] MEDS: MEROPENEM 1,000 MG in SODIUM CHLORIDE 0.9% 100 ML IV SCH ×3 (06:22→21:24)
[2021-05-15 08:29] LABS: PLATELET ESTIMATE SLIGHTLY DECREASED
[2021-05-15 08:31] LABS: PLATELET 111 x1000/uL (130-400)
[2021-05-15] MEDS: QUETIAPINE FUMARATE 25MG TABLET PO SCH ×2 (08:33→21:23)
[2021-05-15] MEDS: ASCORBIC ACID 500 MG TABLET PO SCH (08:33)
[2021-05-15] MEDS: PANTOPRAZOLE SODIUM 40 MG/VIAL IV SCH ×2 (08:33→21:23)
[2021-05-15] MEDS: VANCOMYCIN 1 G PREMIX 200 ML IV SCH ×2 (08:33→19:54)
[2021-05-15] MEDS: DOCUSATE SODIUM SUGAR FREE 100MG/10ML UDC NG SCH ×2 (08:33→17:32)
[2021-05-15] MEDS: BISACODYL 10MG SUPP PR SCH (08:34)
[2021-05-15] MEDS: THIAMINE HCL 100MG TABLET PO SCH (08:34)
[2021-05-15] MEDS: ZINC SULFATE 220 MG ( 50 ) CAPSULE PO SCH (08:34)
[2021-05-15] MEDS ORDERED: FENTANYL CITRATE/PF 50MCG/ML 2ML VIAL IV PRN (11:00)
[2021-05-15 11:29] LABS: BG BASE EXCESS 4.4 mmol/L (-2.0-2.0); BG CARBOXYHEMOGLOBIN 0.3 % (0.5-1.5); BG DEOXYHEMOGLOBIN 0.4 % (0.0-5.0); BG FRACTION INSPIRED OXYGEN 100; BG HCO3 ACT 27.6 mmol/L (22.0-26.0); BG METHEMOGLOBIN 0.4 % (0.0-1.5); BG OXYGEN SATURATION 99.6 % (92.0-98.5); BG OXYHEMOGLOBIN 98.9 % (94.0-97.0); BG PCO2 35.5 mmHg (35.0-45.0); BG PH 7.509 (7.350-7.450); BG PO2 289.5 mmHg (75.0-100.0); BG SAMPLE SITE RIGHT RADIAL; BG TOTAL HEMOGLOBIN 8.7 g/dL (12.0-18.0); BG VENT MODE VENT - AC
[2021-05-15 12:34] LABS: TOTAL IRON BINDING CAPACITY 158 ug/dL (250-450)
[2021-05-15 12:55] LABS: FOLIC ACID (FOLATE) SERUM 8.1 ng/mL (>5.38)
[2021-05-15] MEDS: LORAZEPAM 2MG/ML CPJ IV PRN (19:54)
[2021-05-16] VITALS (97 sets, daily range): BP systolic 87–143; BP diastolic 43–120
[2021-05-16] MEDS: METOCLOPRAMIDE HCL 10MG/2ML VIAL IV SCH ×4 (00:46→17:03)
[2021-05-16] MEDS: GENTAMICIN 120MG PREMIX 100 ML IV SCH ×2 (03:02→13:28)
[2021-05-16] MEDS: IPRATROPIUM/ALBUTEROL 0.5-3(2.5)MG/3ML NEB HHN SCH ×7 (04:10→23:59)
[2021-05-16] MEDS: LACTULOSE 20G/30ML UDC PO SCH (06:00)
[2021-05-16] MEDS: ENOXAPARIN 100MG/ML SYR SUBCUT SCH ×2 (06:00→17:03)
[2021-05-16 06:25] LABS: HEMOGLOBIN. 7.6 g/dL (12.0-16.0); MEAN CORPUSCULAR HEMOGLOBIN 29.9 pg (28.0-32.0); MEAN CORPUSCULAR VOLUME 90.8 fL (81.0-99.0); MEAN PLATELET VOLUME 9.5 fl (7.4-10.4); PLATELET 117 x1000/uL (130-400); RED BLOOD CELL COUNT 2.53 mill/uL (4.2-5.4); RED CELL DISTRIBUTION WIDTH 14.2 % (11.6-14.6)
[2021-05-16 06:31] LABS: CHLORIDE 100 mEq/L (98-107)
[2021-05-16] MEDS: MEROPENEM 1,000 MG in SODIUM CHLORIDE 0.9% 100 ML IV SCH ×3 (06:31→21:20)
[2021-05-16 06:43] LABS: GENTAMICIN RANDOM 0.9 ug/mL
[2021-05-16] MEDS: DOCUSATE SODIUM SUGAR FREE 100MG/10ML UDC NG SCH ×2 (08:57→17:03)
[2021-05-16] MEDS: VANCOMYCIN 1 G PREMIX 200 ML IV SCH ×2 (08:57→21:20)
[2021-05-16] MEDS: ZINC SULFATE 220 MG ( 50 ) CAPSULE PO SCH (08:57)
[2021-05-16] MEDS: PANTOPRAZOLE SODIUM 40 MG/VIAL IV SCH ×2 (08:58→21:20)
[2021-05-16] MEDS: THIAMINE HCL 100MG TABLET PO SCH (08:58)
[2021-05-16] MEDS: ASCORBIC ACID 500 MG TABLET PO SCH (08:58)
[2021-05-16] MEDS: QUETIAPINE FUMARATE 25MG TABLET PO SCH ×2 (08:58→21:20)
[2021-05-16] MEDS: BISACODYL 10MG SUPP PR SCH (08:59)
[2021-05-16] MEDS: LORAZEPAM 2MG/ML CPJ IV PRN ×2 (11:51→17:03)
[2021-05-16 13:44] LABS: PLATELET ESTIMATE DECREASED
[2021-05-16] MEDS: ACETYLCYSTEINE 100MG/ML 10% VIAL 4ML INH SCH ×2 (16:43→20:49)
[2021-05-16] MEDS: FENTANYL CITRATE/PF 2,500 MCG in SODIUM CHLORIDE 0.9% 200 ML IV PRN (18:51)
[2021-05-17] VITALS (92 sets, daily range): BP systolic 42–141; BP diastolic 17–84
[2021-05-17] MEDS: METOCLOPRAMIDE HCL 10MG/2ML VIAL IV SCH ×4 (00:27→18:08)
[2021-05-17] MEDS: IPRATROPIUM/ALBUTEROL 0.5-3(2.5)MG/3ML NEB HHN SCH ×3 (04:14→11:29)
[2021-05-17] MEDS: ENOXAPARIN 100MG/ML SYR SUBCUT SCH ×2 (06:00→18:08)
[2021-05-17] MEDS: GENTAMICIN 120MG PREMIX 100 ML IV SCH ×2 (06:23→18:08)
[2021-05-17] MEDS: MEROPENEM 1,000 MG in SODIUM CHLORIDE 0.9% 100 ML IV SCH ×3 (06:24→23:00)
[2021-05-17 07:28] LABS: BG BASE EXCESS 3.4 mmol/L (-2.0-2.0); BG CARBOXYHEMOGLOBIN 0.3 % (0.5-1.5); BG DEOXYHEMOGLOBIN 4.9 % (0.0-5.0); BG HCO3 ACT 27.1 mmol/L (22.0-26.0); BG METHEMOGLOBIN 0.1 % (0.0-1.5); BG OXYGEN SATURATION 95.1 % (92.0-98.5); BG OXYHEMOGLOBIN 94.7 % (94.0-97.0); BG PCO2 37.1 mmHg (35.0-45.0); BG PH 7.481 (7.350-7.450); BG PO2 78.7 mmHg (75.0-100.0); BG SAMPLE SITE RIGHT RADIAL; BG TOTAL HEMOGLOBIN 8.3 g/dL (12.0-18.0); BG VENT MODE VENT - AC
[2021-05-17] MEDS: ACETYLCYSTEINE 100MG/ML 10% VIAL 4ML INH SCH ×2 (07:49→16:00)
[2021-05-17] MEDS: VANCOMYCIN 1 G PREMIX 200 ML IV SCH ×2 (08:00→21:08)
[2021-05-17] MEDS: PANTOPRAZOLE SODIUM 40 MG/VIAL IV SCH ×2 (09:32→21:07)
[2021-05-17] MEDS: THIAMINE HCL 100MG TABLET PO SCH (09:33)
[2021-05-17] MEDS: BISACODYL 10MG SUPP PR SCH (09:33)
[2021-05-17] MEDS: QUETIAPINE FUMARATE 25MG TABLET PO SCH ×2 (09:33→21:07)
[2021-05-17] MEDS: ASCORBIC ACID 500 MG TABLET PO SCH (09:33)
[2021-05-17] MEDS: DOCUSATE SODIUM SUGAR FREE 100MG/10ML UDC NG SCH ×2 (09:33→17:00)
[2021-05-17] MEDS: ZINC SULFATE 220 MG ( 50 ) CAPSULE PO SCH (09:33)
[2021-05-17] MEDS ORDERED: IPRATROPIUM/ALBUTEROL 0.5-3(2.5)MG/3ML NEB HHN NR (20:45)
[2021-05-17] MEDS: GUAIFENESIN-DM 200MG-20MG/10ML UDC GT PRN (22:47)
[2021-05-17] MEDS: FENTANYL CITRATE/PF 2,500 MCG in SODIUM CHLORIDE 0.9% 200 ML IV PRN (22:48)
[2021-05-17] MEDS: LORAZEPAM 2MG/ML CPJ IV PRN (23:03)
[2021-05-18] VITALS (81 sets, daily range): BP systolic 91–125; BP diastolic 45–73
[2021-05-18] MEDS: IPRATROPIUM/ALBUTEROL 0.5-3(2.5)MG/3ML NEB HHN SCH ×4 (00:17→21:03)
[2021-05-18] MEDS: ACETYLCYSTEINE 100MG/ML 10% VIAL 4ML INH SCH ×3 (00:18→14:22)
[2021-05-18] MEDS: MEROPENEM 1,000 MG in SODIUM CHLORIDE 0.9% 100 ML IV SCH ×3 (05:09→23:00)
[2021-05-18] MEDS: METOCLOPRAMIDE HCL 10MG/2ML VIAL IV SCH ×4 (05:10→17:36)
[2021-05-18 05:58] LABS: HEMATOCRIT. 23.8 % (36.0-48.0); HEMOGLOBIN. 7.7 g/dL (12.0-16.0); MEAN CORPUSCULAR HEMOGLOBIN 29.3 pg (28.0-32.0); MEAN PLATELET VOLUME 9.9 fl (7.4-10.4); PLATELET 185 x1000/uL (130-400); RED BLOOD CELL COUNT 2.62 mill/uL (4.2-5.4); RED CELL DISTRIBUTION WIDTH 14.5 % (11.6-14.6)
[2021-05-18 06:21] LABS: CHLORIDE 97 mEq/L (98-107)
[2021-05-18] MEDS: GENTAMICIN 120MG PREMIX 100 ML IV SCH ×2 (06:50→17:36)
[2021-05-18] MEDS: ENOXAPARIN 100MG/ML SYR SUBCUT SCH ×2 (06:57→17:35)
[2021-05-18] MEDS: GUAIFENESIN-DM 200MG-20MG/10ML UDC GT PRN (07:03)
[2021-05-18 07:56] LABS: PLATELET ESTIMATE NORMAL
[2021-05-18] MEDS ORDERED: PROMETHAZINE/DEXTROMETHORPHAN 6.25-15MG/5ML BOTTLE 120ML PO PRN (08:30)
[2021-05-18] MEDS: QUETIAPINE FUMARATE 25MG TABLET PO SCH ×2 (08:41→20:42)
[2021-05-18] MEDS: ZINC SULFATE 220 MG ( 50 ) CAPSULE PO SCH (08:41)
[2021-05-18] MEDS: DOCUSATE SODIUM SUGAR FREE 100MG/10ML UDC NG SCH ×2 (08:41→17:35)
[2021-05-18] MEDS: PANTOPRAZOLE SODIUM 40 MG/VIAL IV SCH ×2 (08:41→20:42)
[2021-05-18] MEDS: BISACODYL 10MG SUPP PR SCH (08:41)
[2021-05-18] MEDS: THIAMINE HCL 100MG TABLET PO SCH (08:42)
[2021-05-18] MEDS: ASCORBIC ACID 500 MG TABLET PO SCH (08:42)
[2021-05-18] MEDS: VANCOMYCIN 1 G PREMIX 200 ML IV SCH ×2 (09:39→20:42)
[2021-05-18] MEDS ORDERED: LORAZEPAM 2MG/ML CPJ IM PRN (13:00)
[2021-05-18] MEDS: LORAZEPAM 2MG/ML CPJ IV PRN ×2 (14:03→18:52)
[2021-05-19] VITALS (32 sets, daily range): BP systolic 99–120; BP diastolic 39–68
[2021-05-19] MEDS: IPRATROPIUM/ALBUTEROL 0.5-3(2.5)MG/3ML NEB HHN SCH ×5 (00:43→20:15)
[2021-05-19] MEDS: ACETYLCYSTEINE 100MG/ML 10% VIAL 4ML INH SCH ×3 (00:43→12:39)
[2021-05-19] MEDS: ACETAMINOPHEN 650MG/20.3ML UDC PEG PRN (04:24)
[2021-05-19 05:26] LABS: CHLORIDE 99 mEq/L (98-107)
[2021-05-19 05:38] LABS: BASOPHILS % 0.2 % (0.0-2.0); EOSINOPHILS % 0.4 % (0.0-5.0); HEMATOCRIT. 21.7 % (36.0-48.0); HEMOGLOBIN. 7.1 g/dL (12.0-16.0); LYMPHOCYTES % 8.3 % (20.0-50.0); MEAN CORPUSCULAR HEMOGLOBIN 29.8 pg (28.0-32.0); MEAN PLATELET VOLUME 9.9 fl (7.4-10.4); MONOCYTES % 5.9 % (2.0-8.0); NEUTROPHILS % 85.2 % (40.0-76.0); PLATELET 174 x1000/uL (130-400); RED BLOOD CELL COUNT 2.39 mill/uL (4.2-5.4); RED CELL DISTRIBUTION WIDTH 15.3 % (11.6-14.6)
[2021-05-19] MEDS: MEROPENEM 1,000 MG in SODIUM CHLORIDE 0.9% 100 ML IV SCH ×3 (05:53→22:55)
[2021-05-19] MEDS: LORAZEPAM 2MG/ML CPJ IV PRN (05:54)
[2021-05-19] MEDS: METOCLOPRAMIDE HCL 10MG/2ML VIAL IV SCH ×5 (06:00→23:55)
[2021-05-19] MEDS: GENTAMICIN 120MG PREMIX 100 ML IV SCH (06:16)
[2021-05-19] MEDS: QUETIAPINE FUMARATE 25MG TABLET PO SCH ×2 (08:50→20:16)
[2021-05-19] MEDS: ZINC SULFATE 220 MG ( 50 ) CAPSULE PO SCH (08:50)
[2021-05-19] MEDS: PANTOPRAZOLE SODIUM 40 MG/VIAL IV SCH ×2 (08:50→20:16)
[2021-05-19] MEDS: ASCORBIC ACID 500 MG TABLET PO SCH (08:50)
[2021-05-19] MEDS: VANCOMYCIN 1 G PREMIX 200 ML IV SCH ×2 (08:50→20:51)
[2021-05-19] MEDS: DOCUSATE SODIUM SUGAR FREE 100MG/10ML UDC NG SCH (08:52)
[2021-05-19] MEDS: BISACODYL 10MG SUPP PR SCH (08:52)
[2021-05-19] MEDS: GENTAMICIN SULFATE 160 MG in SODIUM CHLORIDE 0.9% 50 ML IV SCH (23:00)
[2021-05-20] VITALS (12 sets, daily range): BP systolic 100–138; BP diastolic 41–91
[2021-05-20] MEDS: IPRATROPIUM/ALBUTEROL 0.5-3(2.5)MG/3ML NEB HHN SCH ×4 (01:35→20:03)
[2021-05-20] MEDS: MEROPENEM 1,000 MG in SODIUM CHLORIDE 0.9% 100 ML IV SCH ×3 (05:01→20:47)
[2021-05-20] MEDS: METOCLOPRAMIDE HCL 10MG/2ML VIAL IV SCH ×4 (05:01→23:21)
[2021-05-20] MEDS: PANTOPRAZOLE SODIUM 40 MG/VIAL IV SCH ×2 (08:16→20:16)
[2021-05-20] MEDS: ACETAMINOPHEN 650MG/20.3ML UDC PEG PRN ×2 (08:16→20:31)
[2021-05-20] MEDS: VANCOMYCIN 1 G PREMIX 200 ML IV SCH ×2 (08:16→20:16)
[2021-05-20] MEDS: ZINC SULFATE 220 MG ( 50 ) CAPSULE PO SCH (08:16)
[2021-05-20] MEDS: ASCORBIC ACID 500 MG TABLET PO SCH (08:16)
[2021-05-20] MEDS: QUETIAPINE FUMARATE 25MG TABLET PO SCH ×2 (08:16→20:16)
[2021-05-20 08:42] LABS: HEMATOCRIT. 22.1 % (36.0-48.0); HEMOGLOBIN. 7.4 g/dL (12.0-16.0); MEAN CORPUSCULAR HEMOGLOBIN 30.2 pg (28.0-32.0); MEAN CORPUSCULAR VOLUME 89.7 fL (81.0-99.0); MEAN PLATELET VOLUME 9.5 fl (7.4-10.4); PLATELET 212 x1000/uL (130-400); RED BLOOD CELL COUNT 2.46 mill/uL (4.2-5.4); RED CELL DISTRIBUTION WIDTH 14.6 % (11.6-14.6)
[2021-05-20] MEDS: ACETYLCYSTEINE 100MG/ML 10% VIAL 4ML INH SCH ×2 (08:55→12:56)
[2021-05-20 08:56] LABS: CHLORIDE 98 mEq/L (98-107)
[2021-05-20] MEDS: BISACODYL 10MG SUPP PR SCH (09:00)
[2021-05-20 12:44] LABS: PLATELET ESTIMATE NORMAL
[2021-05-20] MEDS: GENTAMICIN SULFATE 160 MG in SODIUM CHLORIDE 0.9% 50 ML IV SCH (16:07)
[2021-05-21] VITALS (15 sets, daily range): BP systolic 93–140; BP diastolic 46–76
[2021-05-21] MEDS: ACETYLCYSTEINE 100MG/ML 10% VIAL 4ML INH SCH ×2 (00:16→08:56)
[2021-05-21] MEDS: IPRATROPIUM/ALBUTEROL 0.5-3(2.5)MG/3ML NEB HHN SCH ×6 (00:16→21:30)
[2021-05-21] MEDS: METOCLOPRAMIDE HCL 10MG/2ML VIAL IV SCH ×4 (05:19→23:25)
[2021-05-21 05:59] LABS: HEMATOCRIT. 21.2 % (36.0-48.0); HEMOGLOBIN. 7.1 g/dL (12.0-16.0); MEAN CORPUSCULAR VOLUME 89.8 fL (81.0-99.0); MEAN PLATELET VOLUME 8.6 fl (7.4-10.4); RED BLOOD CELL COUNT 2.36 mill/uL (4.2-5.4); RED CELL DISTRIBUTION WIDTH 14.6 % (11.6-14.6)
[2021-05-21] MEDS: MEROPENEM 1,000 MG in SODIUM CHLORIDE 0.9% 100 ML IV SCH (06:13)
[2021-05-21 06:17] LABS: CHLORIDE 102 mEq/L (98-107)
[2021-05-21] MEDS: VANCOMYCIN 1 G PREMIX 200 ML IV SCH ×2 (08:36→19:47)
[2021-05-21] MEDS: QUETIAPINE FUMARATE 25MG TABLET PO SCH ×2 (08:36→20:09)
[2021-05-21] MEDS: BISACODYL 10MG SUPP PR SCH (08:37)
[2021-05-21] MEDS: PANTOPRAZOLE SODIUM 40 MG/VIAL IV SCH ×2 (09:00→20:09)
[2021-05-21 09:18] LABS: BG BASE EXCESS 7.2 mmol/L (-2.0-2.0); BG CARBOXYHEMOGLOBIN 0.3 % (0.5-1.5); BG DEOXYHEMOGLOBIN 0.8 % (0.0-5.0); BG FRACTION INSPIRED OXYGEN 60; BG HCO3 ACT 30.5 mmol/L (22.0-26.0); BG METHEMOGLOBIN 0.5 % (0.0-1.5); BG OXYGEN SATURATION 99.2 % (92.0-98.5); BG OXYHEMOGLOBIN 98.4 % (94.0-97.0); BG PCO2 37.3 mmHg (35.0-45.0); BG PO2 181.7 mmHg (75.0-100.0); BG SAMPLE SITE RIGHT RADIAL; BG TOTAL HEMOGLOBIN 7.8 g/dL (12.0-18.0); BG VENT MODE VENT - AC
[2021-05-21] MEDS ORDERED: POTASSIUM CHLORIDE 20MEQ/PACKET PO NR (09:30)
[2021-05-21 11:01] LABS: PLATELET ESTIMATE NORMAL
[2021-05-21 11:02] LABS: PLATELET 240 x1000/uL (130-400)
[2021-05-21] MEDS: GENTAMICIN SULFATE 160 MG in SODIUM CHLORIDE 0.9% 50 ML IV SCH (11:33)
[2021-05-21] MEDS ORDERED: ACETYLCYSTEINE 100MG/ML 10% VIAL 4ML INH SCH (16:45)
[2021-05-21 20:00] LABS: HEMOGLOBIN 9.2 g/dL (12.0-16.0)
[2021-05-22] VITALS (12 sets, daily range): BP systolic 118–147; BP diastolic 31–71
[2021-05-22] MEDS: IPRATROPIUM/ALBUTEROL 0.5-3(2.5)MG/3ML NEB HHN SCH ×4 (01:17→20:55)
[2021-05-22] MEDS: METOCLOPRAMIDE HCL 10MG/2ML VIAL IV SCH ×3 (05:50→17:42)
[2021-05-22 06:59] LABS: BASOPHILS % 0.2 % (0.0-2.0); CHLORIDE 98 mEq/L (98-107); EOSINOPHILS % 1.3 % (0.0-5.0); HEMATOCRIT. 27.3 % (36.0-48.0); LYMPHOCYTES % 8.3 % (20.0-50.0); MEAN CORPUSCULAR HEMOGLOBIN 28.9 pg (28.0-32.0); MEAN PLATELET VOLUME 9.2 fl (7.4-10.4); MONOCYTES % 6.5 % (2.0-8.0); NEUTROPHILS % 83.7 % (40.0-76.0); PLATELET 237 x1000/uL (130-400); RED CELL DISTRIBUTION WIDTH 15.3 % (11.6-14.6)
[2021-05-22 07:05] LABS: PHOSPHORUS 2.8 mg/dL (2.5-4.9)
[2021-05-22] MEDS: VANCOMYCIN 1 G PREMIX 200 ML IV SCH ×2 (07:59→20:36)
[2021-05-22] MEDS: QUETIAPINE FUMARATE 25MG TABLET PO SCH ×2 (08:00→20:36)
[2021-05-22] MEDS: PANTOPRAZOLE SODIUM 40 MG/VIAL IV SCH ×2 (08:00→20:36)
[2021-05-22] MEDS: BISACODYL 10MG SUPP PR SCH (08:01)
[2021-05-23] VITALS (12 sets, daily range): BP systolic 127–157; BP diastolic 62–87
[2021-05-23] MEDS: METOCLOPRAMIDE HCL 10MG/2ML VIAL IV SCH ×5 (00:44→23:55)
[2021-05-23] MEDS: IPRATROPIUM/ALBUTEROL 0.5-3(2.5)MG/3ML NEB HHN SCH ×3 (01:01→19:44)
[2021-05-23] MEDS: VANCOMYCIN 1 G PREMIX 200 ML IV SCH ×2 (07:07→20:02)
[2021-05-23 07:47] LABS: CHLORIDE 98 mEq/L (98-107)
[2021-05-23] MEDS: BISACODYL 10MG SUPP PR SCH (08:11)
[2021-05-23] MEDS: QUETIAPINE FUMARATE 25MG TABLET PO SCH ×2 (08:12→21:49)
[2021-05-23] MEDS: PANTOPRAZOLE SODIUM 40 MG/VIAL IV SCH ×2 (08:12→21:49)
[2021-05-23 08:26] LABS: BASOPHILS % 0.3 % (0.0-2.0); EOSINOPHILS % 0.5 % (0.0-5.0); HEMATOCRIT. 26.3 % (36.0-48.0); HEMOGLOBIN. 8.7 g/dL (12.0-16.0); LYMPHOCYTES % 9.2 % (20.0-50.0); MEAN CORPUSCULAR VOLUME 87.5 fL (81.0-99.0); MEAN PLATELET VOLUME 8.6 fl (7.4-10.4); MONOCYTES % 6.8 % (2.0-8.0); NEUTROPHILS % 83.2 % (40.0-76.0); PLATELET 329 x1000/uL (130-400); RED CELL DISTRIBUTION WIDTH 15.6 % (11.6-14.6)
[2021-05-23] MEDS: IPRATROPIUM/ALBUTEROL 0.5-3(2.5)MG/3ML NEB HHN PRN (08:51)
[2021-05-24] VITALS (11 sets, daily range): BP systolic 120–147; BP diastolic 46–87
[2021-05-24] MEDS: IPRATROPIUM/ALBUTEROL 0.5-3(2.5)MG/3ML NEB HHN SCH ×4 (01:57→20:17)
[2021-05-24 05:32] LABS: BASOPHILS % 0.2 % (0.0-2.0); EOSINOPHILS % 0.4 % (0.0-5.0); HEMATOCRIT. 26.2 % (36.0-48.0); HEMOGLOBIN. 8.7 g/dL (12.0-16.0); LYMPHOCYTES % 9.5 % (20.0-50.0); MEAN CORPUSCULAR HEMOGLOBIN 28.8 pg (28.0-32.0); MEAN CORPUSCULAR VOLUME 87.3 fL (81.0-99.0); MEAN PLATELET VOLUME 8.6 fl (7.4-10.4); MONOCYTES % 7.6 % (2.0-8.0); NEUTROPHILS % 82.3 % (40.0-76.0); PLATELET 338 x1000/uL (130-400); RED CELL DISTRIBUTION WIDTH 15.5 % (11.6-14.6)
[2021-05-24 06:00] LABS: CHLORIDE 98 mEq/L (98-107)
[2021-05-24] MEDS: METOCLOPRAMIDE HCL 10MG/2ML VIAL IV SCH ×4 (06:20→23:57)
[2021-05-24] MEDS: BISACODYL 10MG SUPP PR SCH (09:00)
[2021-05-24] MEDS: QUETIAPINE FUMARATE 25MG TABLET PO SCH ×2 (09:47→21:26)
[2021-05-24] MEDS: VANCOMYCIN 1 G PREMIX 200 ML IV SCH (09:48)
[2021-05-24] MEDS: PANTOPRAZOLE SODIUM 40 MG/VIAL IV SCH ×2 (10:00→21:26)
[2021-05-24] MEDS: ACETAMINOPHEN 650MG/20.3ML UDC PEG PRN (23:57)
[2021-05-25] VITALS (12 sets, daily range): BP systolic 114–162; BP diastolic 22–131
[2021-05-25] MEDS: IPRATROPIUM/ALBUTEROL 0.5-3(2.5)MG/3ML NEB HHN SCH ×4 (01:55→20:55)
[2021-05-25] MEDS: METOCLOPRAMIDE HCL 10MG/2ML VIAL IV SCH ×3 (06:31→17:10)
[2021-05-25] MEDS: ACETAMINOPHEN 650MG/20.3ML UDC PEG PRN ×2 (07:40→20:07)
[2021-05-25] MEDS: BISACODYL 10MG SUPP PR SCH (09:00)
[2021-05-25] MEDS: QUETIAPINE FUMARATE 25MG TABLET PO SCH ×2 (09:02→20:07)
[2021-05-25] MEDS: PANTOPRAZOLE SODIUM 40 MG/VIAL IV SCH ×2 (09:02→20:07)
[2021-05-25 09:28] LABS: BG BASE EXCESS 1.9 mmol/L (-2.0-2.0); BG CARBOXYHEMOGLOBIN 0.3 % (0.5-1.5); BG DEOXYHEMOGLOBIN 3.9 % (0.0-5.0); BG FRACTION INSPIRED OXYGEN 45; BG HCO3 ACT 28.9 mmol/L (22.0-26.0); BG METHEMOGLOBIN 0.1 % (0.0-1.5); BG OXYGEN SATURATION 96.1 % (92.0-98.5); BG OXYHEMOGLOBIN 95.7 % (94.0-97.0); BG PCO2 56.8 mmHg (35.0-45.0); BG PH 7.324 (7.350-7.450); BG PO2 96.5 mmHg (75.0-100.0); BG VENT MODE VENT - AC
[2021-05-25] MEDS ORDERED: MORPHINE SULFATE 4 MG/ML CPJ (NOT FOR IM USE) IV PRN (10:00)
[2021-05-25] MEDS ORDERED: FENTANYL CITRATE/PF 50MCG/ML 2ML VIAL IV PRN (10:15)
[2021-05-25] MEDS ORDERED: CLONIDINE 0.1MG TABLET PO PRN (10:45)
[2021-05-25] MEDS: LORAZEPAM 2MG/ML CPJ IV PRN ×3 (11:55→22:22)
[2021-05-25] MEDS: AZTREONAM 1 G in DEXTROSE 5% WATER 50 ML IV SCH ×2 (15:53→21:19)
[2021-05-25 16:40] LABS: HEMATOCRIT. 29.4 % (36.0-48.0); HEMOGLOBIN. 9.6 g/dL (12.0-16.0); MEAN CORPUSCULAR HEMOGLOBIN 28.6 pg (28.0-32.0); MEAN CORPUSCULAR VOLUME 87.6 fL (81.0-99.0); MEAN PLATELET VOLUME 8.1 fl (7.4-10.4); PLATELET 484 x1000/uL (130-400); RED BLOOD CELL COUNT 3.36 mill/uL (4.2-5.4); RED CELL DISTRIBUTION WIDTH 15.7 % (11.6-14.6)
[2021-05-25 16:51] LABS: CHLORIDE 101 mEq/L (98-107)
[2021-05-25 17:08] LABS: PLATELET ESTIMATE INCREASED
[2021-05-26] VITALS (12 sets, daily range): BP systolic 132–168; BP diastolic 59–93
[2021-05-26] MEDS: METOCLOPRAMIDE HCL 10MG/2ML VIAL IV SCH ×5 (00:03→23:55)
[2021-05-26] MEDS: IPRATROPIUM/ALBUTEROL 0.5-3(2.5)MG/3ML NEB HHN SCH ×4 (00:48→20:34)
[2021-05-26] MEDS: AZTREONAM 1 G in DEXTROSE 5% WATER 50 ML IV SCH ×3 (05:00→21:06)
[2021-05-26] MEDS: COLISTIMETHATE SODIUM 150MG/VIAL INH SCH ×2 (09:14→20:36)
[2021-05-26] MEDS: QUETIAPINE FUMARATE 25MG TABLET PO SCH ×2 (09:15→21:06)
[2021-05-26] MEDS: PANTOPRAZOLE SODIUM 40 MG/VIAL IV SCH ×2 (09:15→21:06)
[2021-05-26] MEDS: ACETAMINOPHEN 650MG/20.3ML UDC PEG PRN ×2 (09:34→21:06)
[2021-05-26] MEDS: VANCOMYCIN 1 G PREMIX 200 ML IV SCH ×2 (13:52→23:56)
[2021-05-27] VITALS (12 sets, daily range): BP systolic 118–138; BP diastolic 57–75
[2021-05-27] MEDS: IPRATROPIUM/ALBUTEROL 0.5-3(2.5)MG/3ML NEB HHN SCH ×2 (00:37→07:48)
[2021-05-27] MEDS: ACETAMINOPHEN 650MG/20.3ML UDC PEG PRN ×2 (04:07→17:57)
[2021-05-27] MEDS: IPRATROPIUM/ALBUTEROL 0.5-3(2.5)MG/3ML NEB HHN PRN ×2 (04:35→20:28)
[2021-05-27] MEDS: METOCLOPRAMIDE HCL 10MG/2ML VIAL IV SCH ×3 (05:10→17:49)
[2021-05-27] MEDS: AZTREONAM 1 G in DEXTROSE 5% WATER 50 ML IV SCH ×3 (05:11→22:47)
[2021-05-27] MEDS: COLISTIMETHATE SODIUM 150MG/VIAL INH SCH ×2 (07:48→20:25)
[2021-05-27] MEDS: PANTOPRAZOLE SODIUM 40 MG/VIAL IV SCH ×2 (08:51→21:25)
[2021-05-27] MEDS: QUETIAPINE FUMARATE 25MG TABLET PO SCH ×2 (08:51→21:25)
[2021-05-27] MEDS: VANCOMYCIN 1 G PREMIX 200 ML IV SCH ×2 (09:28→21:25)
[2021-05-28] VITALS (12 sets, daily range): BP systolic 101–136; BP diastolic 59–94
[2021-05-28] MEDS: METOCLOPRAMIDE HCL 10MG/2ML VIAL IV SCH ×5 (00:06→23:34)
[2021-05-28] MEDS: IPRATROPIUM/ALBUTEROL 0.5-3(2.5)MG/3ML NEB HHN SCH ×4 (02:57→20:25)
[2021-05-28] MEDS: AZTREONAM 1 G in DEXTROSE 5% WATER 50 ML IV SCH ×3 (05:16→21:27)
[2021-05-28 06:39] LABS: BASOPHILS % 0.2 % (0.0-2.0); EOSINOPHILS % 0.1 % (0.0-5.0); HEMATOCRIT. 26.6 % (36.0-48.0); HEMOGLOBIN. 8.8 g/dL (12.0-16.0); LYMPHOCYTES % 7.7 % (20.0-50.0); MEAN CORPUSCULAR HEMOGLOBIN 28.8 pg (28.0-32.0); MEAN CORPUSCULAR VOLUME 86.9 fL (81.0-99.0); MEAN PLATELET VOLUME 8.4 fl (7.4-10.4); MONOCYTES % 6.2 % (2.0-8.0); NEUTROPHILS % 85.8 % (40.0-76.0); PLATELET 472 x1000/uL (130-400); RED BLOOD CELL COUNT 3.06 mill/uL (4.2-5.4); RED CELL DISTRIBUTION WIDTH 15.5 % (11.6-14.6)
[2021-05-28 06:57] LABS: CHLORIDE 104 mEq/L (98-107)
[2021-05-28] MEDS ORDERED: POTASSIUM CHLORIDE 20MEQ/PACKET PO SCH (08:15)
[2021-05-28] MEDS: QUETIAPINE FUMARATE 25MG TABLET PO SCH ×2 (08:52→20:18)
[2021-05-28] MEDS: PANTOPRAZOLE SODIUM 40 MG/VIAL IV SCH ×2 (08:52→20:18)
[2021-05-28] MEDS: VANCOMYCIN 1 G PREMIX 200 ML IV SCH (08:52)
[2021-05-28] MEDS: COLISTIMETHATE SODIUM 150MG/VIAL INH SCH ×2 (09:26→20:25)
[2021-05-28 13:28] LABS: BG BASE EXCESS 8.9 mmol/L (-2.0-2.0); BG CARBOXYHEMOGLOBIN 0.1 % (0.5-1.5); BG DEOXYHEMOGLOBIN 4.5 % (0.0-5.0); BG HCO3 ACT 32.7 mmol/L (22.0-26.0); BG METHEMOGLOBIN 0.2 % (0.0-1.5); BG OXYGEN SATURATION 95.5 % (92.0-98.5); BG OXYHEMOGLOBIN 95.2 % (94.0-97.0); BG PCO2 41.4 mmHg (35.0-45.0); BG PH 7.515 (7.350-7.450); BG PO2 72.9 mmHg (75.0-100.0); BG SAMPLE SITE RIGHT RADIAL; BG TOTAL HEMOGLOBIN 9.5 g/dL (12.0-18.0); BG VENT MODE VENT - AC
[2021-05-29] VITALS (12 sets, daily range): BP systolic 109–142; BP diastolic 61–71
[2021-05-29] MEDS ORDERED: VANCOMYCIN 750 MG PREMIX 150 ML IV SCH
[2021-05-29] MEDS: IPRATROPIUM/ALBUTEROL 0.5-3(2.5)MG/3ML NEB HHN SCH ×4 (01:49→21:44)
[2021-05-29] MEDS: AZTREONAM 1 G in DEXTROSE 5% WATER 50 ML IV SCH ×3 (05:14→22:41)
[2021-05-29] MEDS: METOCLOPRAMIDE HCL 10MG/2ML VIAL IV SCH ×3 (05:14→17:57)
[2021-05-29 05:50] LABS: CHLORIDE 105 mEq/L (98-107)
[2021-05-29 05:55] LABS: PHOSPHORUS 3.1 mg/dL (2.5-4.9)
[2021-05-29 06:19] LABS: HEMATOCRIT. 26.9 % (36.0-48.0); HEMOGLOBIN. 8.8 g/dL (12.0-16.0); MEAN CORPUSCULAR HEMOGLOBIN 28.4 pg (28.0-32.0); MEAN CORPUSCULAR VOLUME 87.1 fL (81.0-99.0); MEAN PLATELET VOLUME 8.4 fl (7.4-10.4); PLATELET 478 x1000/uL (130-400); RED BLOOD CELL COUNT 3.08 mill/uL (4.2-5.4); RED CELL DISTRIBUTION WIDTH 15.7 % (11.6-14.6)
[2021-05-29] MEDS: PANTOPRAZOLE SODIUM 40 MG/VIAL IV SCH ×2 (08:38→20:58)
[2021-05-29] MEDS: COLISTIMETHATE SODIUM 150MG/VIAL INH SCH ×2 (08:38→08:59)
[2021-05-29] MEDS: QUETIAPINE FUMARATE 25MG TABLET PO SCH ×2 (08:38→20:58)
[2021-05-29 11:22] LABS: PLATELET ESTIMATE INCREASED
[2021-05-29] MEDS: VANCOMYCIN 750 MG PREMIX 150 ML IV SCH ×2 (11:34→20:58)
[2021-05-29 16:01] LABS: CLARITY URINE CLEAR (CLEAR); COLOR URINE YELLOW (YELLOW); KETONES URINE NEGATIVE (NEGATIVE); LEUKOCYTE ESTERASE URINE TRACE (NEGATIVE); NITRITE URINE NEGATIVE (NEGATIVE); OCCULT BLOOD URINE 1+ (NEGATIVE); PH URINE 6.5 (4.5-8.0); PROTEIN URINE 1+ (NEGATIVE); SPECIFIC GRAVITY URINE 1.023 (1.005-1.030)
[2021-05-29] MEDS: VANCOMYCIN HCL 1000 MG/20 ML ORAL PO SCH (17:57)
[2021-05-30] VITALS (12 sets, daily range): BP systolic 112–137; BP diastolic 50–75
[2021-05-30] MEDS: METOCLOPRAMIDE HCL 10MG/2ML VIAL IV SCH ×4 (00:31→17:18)
[2021-05-30] MEDS: VANCOMYCIN HCL 1000 MG/20 ML ORAL PO SCH ×4 (00:31→17:18)
[2021-05-30] MEDS: IPRATROPIUM/ALBUTEROL 0.5-3(2.5)MG/3ML NEB HHN SCH ×4 (00:55→20:47)
[2021-05-30] MEDS: LACTULOSE 20G/30ML UDC PO PRN (01:36)
[2021-05-30] MEDS: AZTREONAM 1 G in DEXTROSE 5% WATER 50 ML IV SCH (05:22)
[2021-05-30 06:38] LABS: HEMATOCRIT. 27.2 % (36.0-48.0); HEMOGLOBIN. 8.8 g/dL (12.0-16.0); MEAN CORPUSCULAR HEMOGLOBIN 27.9 pg (28.0-32.0); MEAN CORPUSCULAR VOLUME 86.8 fL (81.0-99.0); MEAN PLATELET VOLUME 8.3 fl (7.4-10.4); PLATELET 445 x1000/uL (130-400); RED BLOOD CELL COUNT 3.13 mill/uL (4.2-5.4)
[2021-05-30 06:55] LABS: CHLORIDE 105 mEq/L (98-107)
[2021-05-30] MEDS: QUETIAPINE FUMARATE 25MG TABLET PO SCH ×2 (09:01→20:41)
[2021-05-30] MEDS: PANTOPRAZOLE SODIUM 40 MG/VIAL IV SCH ×2 (09:01→20:41)
[2021-05-30] MEDS: VANCOMYCIN 750 MG PREMIX 150 ML IV SCH ×2 (09:28→20:41)
[2021-05-30] MEDS ORDERED: POTASSIUM CHLORIDE 20MEQ/PACKET PO NR (11:15)
[2021-05-31] VITALS (12 sets, daily range): BP systolic 106–124; BP diastolic 57–67
[2021-05-31] MEDS: METOCLOPRAMIDE HCL 10MG/2ML VIAL IV SCH ×4 (00:56→17:40)
[2021-05-31] MEDS: LACTULOSE 20G/30ML UDC PO PRN (00:56)
[2021-05-31] MEDS: VANCOMYCIN HCL 1000 MG/20 ML ORAL PO SCH ×4 (00:57→17:40)
[2021-05-31] MEDS: IPRATROPIUM/ALBUTEROL 0.5-3(2.5)MG/3ML NEB HHN SCH ×4 (02:18→20:47)
[2021-05-31 06:39] LABS: HEMATOCRIT. 27.8 % (36.0-48.0); MEAN CORPUSCULAR HEMOGLOBIN 27.7 pg (28.0-32.0); MEAN CORPUSCULAR VOLUME 85.3 fL (81.0-99.0); MEAN PLATELET VOLUME 8.5 fl (7.4-10.4); PLATELET 498 x1000/uL (130-400); RED BLOOD CELL COUNT 3.25 mill/uL (4.2-5.4); RED CELL DISTRIBUTION WIDTH 15.7 % (11.6-14.6)
[2021-05-31 07:46] LABS: PLATELET ESTIMATE INCREASED
[2021-05-31] MEDS: QUETIAPINE FUMARATE 25MG TABLET PO SCH ×2 (09:16→21:12)
[2021-05-31] MEDS: PANTOPRAZOLE SODIUM 40 MG/VIAL IV SCH ×2 (09:16→21:12)
[2021-05-31] MEDS: VANCOMYCIN 750 MG PREMIX 150 ML IV SCH (09:17)
[2021-05-31 16:49] LABS: PLATELET ESTIMATE INCREASED
[2021-06-01] VITALS (13 sets, daily range): BP systolic 104–138; BP diastolic 61–83
[2021-06-01] MEDS: METOCLOPRAMIDE HCL 10MG/2ML VIAL IV SCH ×4 (00:01→18:03)
[2021-06-01] MEDS: VANCOMYCIN HCL 1000 MG/20 ML ORAL PO SCH ×4 (00:02→18:03)
[2021-06-01] MEDS: IPRATROPIUM/ALBUTEROL 0.5-3(2.5)MG/3ML NEB HHN SCH ×4 (02:36→21:19)
[2021-06-01 06:50] LABS: HEMATOCRIT. 27.9 % (36.0-48.0); MEAN CORPUSCULAR HEMOGLOBIN 27.7 pg (28.0-32.0); MEAN CORPUSCULAR VOLUME 86.1 fL (81.0-99.0); MEAN PLATELET VOLUME 8.6 fl (7.4-10.4); PLATELET 446 x1000/uL (130-400); RED BLOOD CELL COUNT 3.24 mill/uL (4.2-5.4)
[2021-06-01] MEDS: QUETIAPINE FUMARATE 25MG TABLET PO SCH ×2 (09:21→20:34)
[2021-06-01] MEDS: PANTOPRAZOLE SODIUM 40 MG/VIAL IV SCH ×2 (09:21→20:34)
[2021-06-01 09:57] LABS: CHLORIDE 102 mEq/L (98-107)
[2021-06-01 12:42] LABS: PLATELET ESTIMATE INCREASED
[2021-06-01] MEDS: ACETAMINOPHEN 650MG/20.3ML UDC PEG PRN (13:35)
== END 2021-06-01 22:00 | DRG 4 ==
LOC: ER 13:36 → MICUSO 15:44 → CANRESERV 16:54 → ENRESERV 16:54 → CANRESERV 19:31 → ENRESERV 19:31 → MICUSO 04-26 06:37 → 5EST 05-06 09:25 → MICUSO 05-10 06:41 → 5EST 05-19 15:30
PROVIDERS: ADMIT Internal Medicine; ATTEND Internal Medicine
PROC: 5A1955Z Respiratory Ventilation, Greater than 96 Consecutive Hours (ICD-10-PCS; principal; 2021-04-18)
PROC: 06HY33Z Insertion of Infusion Device into Lower Vein, Percutaneous Approach (ICD-10-PCS; 2021-04-18)
PROC: B54CZZA Ultrasonography of Left Lower Extremity Veins, Guidance (ICD-10-PCS; 2021-04-18)
PROC: 0BH17EZ Insertion of Endotracheal Airway into Trachea, Via Natural or Artificial Opening (ICD-10-PCS; 2021-04-18)
PROC: 4A10X4Z Monitoring of Central Nervous Electrical Activity, External Approach (ICD-10-PCS; 2021-04-20)
PROC: 02HV33Z Insertion of Infusion Device into Superior Vena Cava, Percutaneous Approach (ICD-10-PCS; 2021-04-22)
PROC: B548ZZA Ultrasonography of Superior Vena Cava, Guidance (ICD-10-PCS; 2021-04-22)
PROC: 0B110F4 Bypass Trachea to Cutaneous with Tracheostomy Device, Open Approach (ICD-10-PCS; 2021-05-04)
PROC: 0DH64UZ Insertion of Feeding Device into Stomach, Percutaneous Endoscopic Approach (ICD-10-PCS; 2021-05-05)
PROC: 05HN33Z Insertion of Infusion Device into Left Internal Jugular Vein, Percutaneous Approach (ICD-10-PCS; 2021-05-05)
PROC: 0W9930Z Drainage of Right Pleural Cavity with Drainage Device, Percutaneous Approach (ICD-10-PCS; 2021-05-10)
PROC: 02HV33Z Insertion of Infusion Device into Superior Vena Cava, Percutaneous Approach (ICD-10-PCS; 2021-05-12)
PROC: B548ZZA Ultrasonography of Superior Vena Cava, Guidance (ICD-10-PCS; 2021-05-12)
PROC: 5A12012 Performance of Cardiac Output, Single, Manual (ICD-10-PCS; 2021-05-13)
PROC: 30233N1 Transfusion of Nonautologous Red Blood Cells into Peripheral Vein, Percutaneous Approach (ICD-10-PCS; 2021-05-21)
DX: A41.52 Sepsis due to Pseudomonas (principal); I21.4 Non-ST elevation (NSTEMI) myocardial infarction; N17.0 Acute kidney failure with tubular necrosis; R65.21 Severe sepsis with septic shock; G92.8 Other toxic encephalopathy; I46.9 Cardiac arrest, cause unspecified; G92.9 Unspecified toxic encephalopathy; J80 Acute respiratory distress syndrome; E43 Unspecified severe protein-calorie malnutrition; I63.9 Cerebral infarction, unspecified; J15.1 Pneumonia due to Pseudomonas; J69.0 Pneumonitis due to inhalation of food and vomit; J93.0 Spontaneous tension pneumothorax; D68.9 Coagulation defect, unspecified; E87.2 Acidosis; J44.0 Chronic obstructive pulmonary disease with (acute) lower respiratory infection; N39.0 Urinary tract infection, site not specified; M62.82 Rhabdomyolysis; Z99.11 Dependence on respirator [ventilator] status; E87.0 Hyperosmolality and hypernatremia; J95.03 Malfunction of tracheostomy stoma; I13.0 Hypertensive heart and chronic kidney disease with heart failure and stage 1 through stage 4 chronic kidney disease, or unspecified chronic kidney disease; F02.80 Dementia in other diseases classified elsewhere, unspecified severity, without behavioral disturbance, psychotic disturbance, mood disturbance, and anxiety; F20.9 Schizophrenia, unspecified; G20 Parkinson's disease; G40.909 Epilepsy, unspecified, not intractable, without status epilepticus; I25.10 Atherosclerotic heart disease of native coronary artery without angina pectoris; Z20.822 Contact with and (suspected) exposure to COVID-19; K44.9 Diaphragmatic hernia without obstruction or gangrene; E66.9 Obesity, unspecified; D63.8 Anemia in other chronic diseases classified elsewhere; E83.39 Other disorders of phosphorus metabolism; E87.6 Hypokalemia; K56.41 Fecal impaction; I50.9 Heart failure, unspecified; N18.1 Chronic kidney disease, stage 1; B19.20 Unspecified viral hepatitis C without hepatic coma; Z68.30 Body mass index [BMI] 30.0-30.9, adult; Z63.8 Other specified problems related to primary support group; Z68.33 Body mass index [BMI] 33.0-33.9, adult
CPT/HCPCS: 36415; 36600; 70551; 71045; 71250; 74177; 74178; 76700; 76770; 76937; 78580; 80048; 80053; 80076; 80170; 80202; 80305; 80320; 80329; 81003; 82040; 82140; 82248; 82270; 82375; 82550; 82607; 82728; 82746; 82805; 82962; 83036; 83540; 83550; 83605; 83735; 83880; 84100; 84134; 84145; 84443; 84484; 85014; 85018; 85025; 85044; 85379; 86038; 86140; 86160; 86635; 86705; 86709; 86803; 86850; 86900; 86920; 87070; 87077; 87186; 87340; 87426; 87449; 87804; 87899; 93005; 93306; 93880; 93923; 93970; 94002; 94003; 94640; 94667; 95816; 97161; 97164; 99291; A6261; C1725; C9113; J0690; J0692; J0770; J1580; J1650; J1885; J2060; J2185; J2250; J2310; J2405; J2543; J2704; J2765; J2920; J3010; J3370; J3490; J7030; J7040; J7042; J7050; J7060; J7070; J7512; J7608; P9016; Q9967; U0003; U0005; G0480

== ENCOUNTER 2021-06-25 17:24 | Inpatient (IN) | payer MEDICARE, MEDICAID ==
[~2021-06-25] VITALS: Ht 167.6 cm; Wt 88.1 kg
[2021-06-25] MEDS ORDERED: PIPERACILLIN/TAZ 3.375G PREMIX 50 ML IV ONE (17:45)
[2021-06-25] MEDS ORDERED: VANCOMYCIN 1 G PREMIX 200 ML IV ONE (17:45)
[2021-06-25] MEDS ORDERED: SODIUM CHLORIDE 0.9% 1000ML BAG (SEPSIS BOLUS) IV ONE (17:45)
[2021-06-25 18:15] LABS: BASOPHILS % 0.3 % (0.0-2.0); HEMATOCRIT. 34.4 % (36.0-48.0); LYMPHOCYTES % 8.4 % (20.0-50.0); MEAN CORPUSCULAR HEMOGLOBIN 27.7 pg (28.0-32.0); MEAN CORPUSCULAR VOLUME 86.9 fL (81.0-99.0); MEAN PLATELET VOLUME 8.4 fl (7.4-10.4); MONOCYTES % 7.5 % (2.0-8.0); NEUTROPHILS % 83.8 % (40.0-76.0); PLATELET 318 x1000/uL (130-400); RED BLOOD CELL COUNT 3.96 mill/uL (4.2-5.4)
[2021-06-25 18:22] LABS: CHLORIDE 105 mEq/L (98-107)
[2021-06-25] MEDS ORDERED: ASPIRIN 300MG SUPP PR ONE (19:30)
[2021-06-25 19:45] LABS: CLARITY URINE TURBID (CLEAR); COLOR URINE DARK YELLOW (YELLOW); KETONES URINE TRACE (NEGATIVE); LEUKOCYTE ESTERASE URINE 2+ (NEGATIVE); NITRITE URINE NEGATIVE (NEGATIVE); OCCULT BLOOD URINE NEGATIVE (NEGATIVE); PROTEIN URINE 1+ (NEGATIVE); SPECIFIC GRAVITY URINE 1.029 (1.005-1.030)
[2021-06-25 20:49] LABS: BG BASE EXCESS -2.7 mmol/L (-2.0-2.0); BG CARBOXYHEMOGLOBIN 0.3 % (0.5-1.5); BG DEOXYHEMOGLOBIN 1.3 % (0.0-5.0); BG FRACTION INSPIRED OXYGEN 50; BG HCO3 ACT 20.2 mmol/L (22.0-26.0); BG METHEMOGLOBIN 0.1 % (0.0-1.5); BG OXYGEN SATURATION 98.7 % (92.0-98.5); BG OXYHEMOGLOBIN 98.3 % (94.0-97.0); BG PCO2 29.1 mmHg (35.0-45.0); BG PO2 144.4 mmHg (75.0-100.0); BG SAMPLE SITE RIGHT RADIAL; BG TOTAL HEMOGLOBIN 11.2 g/dL (12.0-18.0); BG VENT MODE VENT - AC
[2021-06-25] MEDS ORDERED: CLONIDINE 0.1MG TABLET PEG PRN (22:15)
[2021-06-25] MEDS ORDERED: ACETAMINOPHEN 650MG/20.3ML UDC GT PRN (22:15)
[2021-06-25] MEDS ORDERED: CEFEPIME 1,000 MG in DEXTROSE 5% WATER 50 ML IV SCH (23:00)
[2021-06-25] MEDS: DEXT 5%/0.45% NACL 1000ML 1,000 ML IV SCH (23:15)
[2021-06-26] VITALS (33 sets, daily range): BP systolic 94–135; BP diastolic 48–80
[2021-06-26] MEDS: IPRATROPIUM/ALBUTEROL 0.5-3(2.5)MG/3ML NEB HHN SCH ×4 (00:15→20:12)
[2021-06-26] MEDS: IPRATROPIUM/ALBUTEROL 0.5-3(2.5)MG/3ML NEB NEB PRN ×2 (03:53→13:37)
[2021-06-26 05:22] LABS: CHLORIDE 108 mEq/L (98-107)
[2021-06-26] MEDS: LORAZEPAM 2MG/ML CPJ IV PRN (08:00)
[2021-06-26] MEDS ORDERED: ENOXAPARIN 80MG/0.8ML SYR SUBCUT NR (12:00)
[2021-06-26] MEDS: CEFEPIME 1,000 MG in DEXTROSE 5% WATER 50 ML IV SCH ×2 (12:18→20:22)
[2021-06-26 17:49] LABS: INR 1.1
[2021-06-26] MEDS: DEXT 5%/0.45% NACL 1000ML 1,000 ML IV SCH (18:28)
[2021-06-26] MEDS ORDERED: ENOXAPARIN 40MG/0.4ML SYR SUBCUT SCH (23:00)
[2021-06-26] MEDS: GUAIFENESIN 200MG/10ML SUGAR FREE UDC PO SCH (23:06)
[2021-06-26] MEDS: ACETAMINOPHEN 650MG/20.3ML UDC GT PRN (23:06)
[2021-06-26] MEDS: ENOXAPARIN 80MG/0.8ML SYR SUBCUT SCH (23:07)
[2021-06-27] VITALS (28 sets, daily range): BP systolic 95–127; BP diastolic 49–77
[2021-06-27] MEDS: IPRATROPIUM/ALBUTEROL 0.5-3(2.5)MG/3ML NEB HHN SCH ×6 (00:15→20:28)
[2021-06-27] MEDS: ACETYLCYSTEINE 100MG/ML 10% VIAL 4ML INH SCH ×3 (00:15→15:46)
[2021-06-27] MEDS: GUAIFENESIN 200MG/10ML SUGAR FREE UDC PO SCH ×4 (05:34→23:07)
[2021-06-27] MEDS: VANCOMYCIN 1 G PREMIX 200 ML IV SCH ×2 (05:35→17:14)
[2021-06-27 07:17] LABS: BASOPHILS % 0.3 % (0.0-2.0); EOSINOPHILS % 0.6 % (0.0-5.0); HEMATOCRIT. 23.9 % (36.0-48.0); HEMOGLOBIN. 7.8 g/dL (12.0-16.0); LYMPHOCYTES % 17.1 % (20.0-50.0); MEAN CORPUSCULAR HEMOGLOBIN 28.6 pg (28.0-32.0); MEAN CORPUSCULAR VOLUME 87.6 fL (81.0-99.0); MEAN PLATELET VOLUME 8.9 fl (7.4-10.4); MONOCYTES % 9.2 % (2.0-8.0); NEUTROPHILS % 72.8 % (40.0-76.0); PLATELET 248 x1000/uL (130-400); RED BLOOD CELL COUNT 2.73 mill/uL (4.2-5.4); RED CELL DISTRIBUTION WIDTH 17.7 % (11.6-14.6)
[2021-06-27 07:26] LABS: CHLORIDE 109 mEq/L (98-107)
[2021-06-27 07:44] LABS: PHOSPHORUS 1.7 mg/dL (2.5-4.9)
[2021-06-27] MEDS: CEFEPIME 1,000 MG in DEXTROSE 5% WATER 50 ML IV SCH ×2 (09:58→21:30)
[2021-06-27 10:09] LABS: BG BASE EXCESS 2.8 mmol/L (-2.0-2.0); BG CARBOXYHEMOGLOBIN 0.1 % (0.5-1.5); BG DEOXYHEMOGLOBIN 2.6 % (0.0-5.0); BG FRACTION INSPIRED OXYGEN 40; BG HCO3 ACT 25.3 mmol/L (22.0-26.0); BG METHEMOGLOBIN 0.2 % (0.0-1.5); BG OXYGEN SATURATION 97.4 % (92.0-98.5); BG OXYHEMOGLOBIN 97.1 % (94.0-97.0); BG PCO2 30.5 mmHg (35.0-45.0); BG PH 7.536 (7.350-7.450); BG PO2 89.7 mmHg (75.0-100.0); BG SAMPLE SITE RIGHT RADIAL; BG TOTAL HEMOGLOBIN 8.6 g/dL (12.0-18.0); BG TOTAL RESPIRATORY RATE 37 b/min; BG VENT MODE VENT - AC
[2021-06-27] MEDS: DIPHENHYDRAMINE 50MG/ML VIAL IV PRN (10:20)
[2021-06-27] MEDS: ENOXAPARIN 80MG/0.8ML SYR SUBCUT SCH ×2 (10:20→21:30)
[2021-06-27] MEDS: LORAZEPAM 2MG/ML CPJ IV PRN ×3 (10:21→22:32)
[2021-06-27] MEDS ORDERED: POTASSIUM CHLORIDE 20MEQ/PACKET PEG SCH (12:30)
[2021-06-27] MEDS: DEXT 5%/0.45% NACL 1000ML 1,000 ML IV SCH (15:19)
[2021-06-28] VITALS (12 sets, daily range): BP systolic 111–149; BP diastolic 44–88
[2021-06-28] MEDS: ACETYLCYSTEINE 100MG/ML 10% VIAL 4ML INH SCH ×4 (00:07→20:41)
[2021-06-28] MEDS: IPRATROPIUM/ALBUTEROL 0.5-3(2.5)MG/3ML NEB HHN SCH ×6 (00:07→20:41)
[2021-06-28] MEDS: GUAIFENESIN 200MG/10ML SUGAR FREE UDC PO SCH ×4 (05:45→23:47)
[2021-06-28] MEDS: VANCOMYCIN 1 G PREMIX 200 ML IV SCH (05:45)
[2021-06-28] MEDS: ENOXAPARIN 80MG/0.8ML SYR SUBCUT SCH (08:42)
[2021-06-28] MEDS: ASCORBIC ACID 500 MG TABLET PO SCH (08:42)
[2021-06-28] MEDS: CEFEPIME 1,000 MG in DEXTROSE 5% WATER 50 ML IV SCH ×2 (08:42→20:41)
[2021-06-28] MEDS: ZINC SULFATE 220 MG ( 50 ) CAPSULE PO SCH (08:42)
[2021-06-28] MEDS: DEXT 5%/0.45% NACL 1000ML 1,000 ML IV SCH (10:04)
[2021-06-28] MEDS: LORAZEPAM 2MG/ML CPJ IV PRN (12:03)
[2021-06-28] MEDS: ENOXAPARIN 100MG/ML SYR SUBCUT SCH (20:42)
[2021-06-29] VITALS (13 sets, daily range): BP systolic 101–154; BP diastolic 57–88
[2021-06-29] MEDS: IPRATROPIUM/ALBUTEROL 0.5-3(2.5)MG/3ML NEB HHN SCH ×4 (00:34→20:40)
[2021-06-29] MEDS: GUAIFENESIN 200MG/10ML SUGAR FREE UDC PO SCH ×4 (05:22→23:22)
[2021-06-29] MEDS: DEXT 5%/0.45% NACL 1000ML 1,000 ML IV SCH (05:23)
[2021-06-29 06:03] LABS: CHLORIDE 108 mEq/L (98-107)
[2021-06-29] MEDS: CEFEPIME 1,000 MG in DEXTROSE 5% WATER 50 ML IV SCH ×2 (10:36→21:06)
[2021-06-29] MEDS: ZINC SULFATE 220 MG ( 50 ) CAPSULE PO SCH (10:37)
[2021-06-29] MEDS: ENOXAPARIN 100MG/ML SYR SUBCUT SCH ×2 (10:37→21:07)
[2021-06-29] MEDS: ASCORBIC ACID 500 MG TABLET PO SCH (10:37)
[2021-06-29] MEDS ORDERED: VANCOMYCIN 750 MG in DEXT 5% WATER 250 ML IV SCH (12:30)
[2021-06-29] MEDS: ACETYLCYSTEINE 100MG/ML 10% VIAL 4ML INH SCH (12:53)
[2021-06-29] MEDS: LORAZEPAM 2MG/ML CPJ IV PRN ×2 (16:33→21:07)
[2021-06-29] MEDS: ACETAMINOPHEN 650MG/20.3ML UDC GT PRN (16:44)
[2021-06-29] MEDS: ONDANSETRON HCL 4MG/2ML INJ IV PRN (21:06)
[2021-06-30] VITALS (11 sets, daily range): BP systolic 86–139; BP diastolic 54–80
[2021-06-30] MEDS: IPRATROPIUM/ALBUTEROL 0.5-3(2.5)MG/3ML NEB HHN SCH ×6 (00:23→20:16)
[2021-06-30] MEDS: LORAZEPAM 2MG/ML CPJ IV PRN ×4 (02:01→17:23)
[2021-06-30] MEDS: ONDANSETRON HCL 4MG/2ML INJ IV PRN ×4 (02:02→20:40)
[2021-06-30] MEDS: DEXT 5%/0.45% NACL 1000ML 1,000 ML IV SCH ×2 (02:45→20:39)
[2021-06-30] MEDS: GUAIFENESIN 200MG/10ML SUGAR FREE UDC PO SCH ×4 (05:09→23:05)
[2021-06-30 06:02] LABS: BASOPHILS % 0.5 % (0.0-2.0); EOSINOPHILS % 1.8 % (0.0-5.0); HEMATOCRIT. 30.4 % (36.0-48.0); HEMOGLOBIN. 9.8 g/dL (12.0-16.0); LYMPHOCYTES % 22.4 % (20.0-50.0); MEAN CORPUSCULAR HEMOGLOBIN 28.8 pg (28.0-32.0); MEAN CORPUSCULAR VOLUME 88.7 fL (81.0-99.0); MEAN PLATELET VOLUME 9.3 fl (7.4-10.4); MONOCYTES % 6.9 % (2.0-8.0); NEUTROPHILS % 68.4 % (40.0-76.0); PLATELET 310 x1000/uL (130-400); RED BLOOD CELL COUNT 3.42 mill/uL (4.2-5.4); RED CELL DISTRIBUTION WIDTH 18.4 % (11.6-14.6)
[2021-06-30] MEDS: ACETYLCYSTEINE 100MG/ML 10% VIAL 4ML INH SCH ×2 (08:16→16:52)
[2021-06-30] MEDS: DIPHENHYDRAMINE 50MG/ML VIAL IV PRN ×3 (08:52→20:40)
[2021-06-30] MEDS: ZINC SULFATE 220 MG ( 50 ) CAPSULE PO SCH (08:52)
[2021-06-30] MEDS: CEFEPIME 1,000 MG in DEXTROSE 5% WATER 50 ML IV SCH ×2 (08:52→20:39)
[2021-06-30] MEDS: ENOXAPARIN 100MG/ML SYR SUBCUT SCH ×2 (08:52→20:40)
[2021-06-30] MEDS: ASCORBIC ACID 500 MG TABLET PO SCH (08:52)
[2021-06-30] MEDS: ACETAMINOPHEN 650MG/20.3ML UDC GT PRN (23:05)
[2021-07-01] VITALS (10 sets, daily range): BP systolic 93–140; BP diastolic 47–93
[2021-07-01] MEDS: IPRATROPIUM/ALBUTEROL 0.5-3(2.5)MG/3ML NEB HHN SCH ×5 (00:18→15:39)
[2021-07-01] MEDS: ACETYLCYSTEINE 100MG/ML 10% VIAL 4ML INH SCH ×3 (00:18→15:39)
[2021-07-01] MEDS ORDERED: LORAZEPAM 2MG/ML CPJ IV PRN (03:45)
[2021-07-01] MEDS: DIPHENHYDRAMINE 50MG/ML VIAL IV PRN (04:12)
[2021-07-01] MEDS: GUAIFENESIN 200MG/10ML SUGAR FREE UDC PO SCH ×3 (06:20→18:34)
[2021-07-01] MEDS: ENOXAPARIN 100MG/ML SYR SUBCUT SCH (09:53)
[2021-07-01] MEDS: ZINC SULFATE 220 MG ( 50 ) CAPSULE PO SCH (09:53)
[2021-07-01] MEDS: ASCORBIC ACID 500 MG TABLET PO SCH (09:53)
[2021-07-01] MEDS: DEXT 5%/0.45% NACL 1000ML 1,000 ML IV SCH (18:34)
== END 2021-07-01 21:34 | DRG 870 ==
LOC: ER 17:24 → MICUSO 20:50 → EDBEDREQTM 21:01 → EDBEDREQ 21:01 → ENRESERV 06-26 07:41 → 5EST 06-26 10:12
PROVIDERS: ADMIT Internal Medicine; ATTEND Internal Medicine
PROC: 5A1955Z Respiratory Ventilation, Greater than 96 Consecutive Hours (ICD-10-PCS; principal; 2021-06-25)
PROC: 02HV33Z Insertion of Infusion Device into Superior Vena Cava, Percutaneous Approach (ICD-10-PCS; 2021-07-01)
PROC: B548ZZA Ultrasonography of Superior Vena Cava, Guidance (ICD-10-PCS; 2021-07-01)
DX: A41.52 Sepsis due to Pseudomonas (principal); E43 Unspecified severe protein-calorie malnutrition; G92.8 Other toxic encephalopathy; I21.4 Non-ST elevation (NSTEMI) myocardial infarction; J96.21 Acute and chronic respiratory failure with hypoxia; J15.1 Pneumonia due to Pseudomonas; J44.0 Chronic obstructive pulmonary disease with (acute) lower respiratory infection; N39.0 Urinary tract infection, site not specified; I13.11 Hypertensive heart and chronic kidney disease without heart failure, with stage 5 chronic kidney disease, or end stage renal disease; Z20.822 Contact with and (suspected) exposure to COVID-19; E87.6 Hypokalemia; B19.20 Unspecified viral hepatitis C without hepatic coma; N18.9 Chronic kidney disease, unspecified; R13.10 Dysphagia, unspecified; G40.909 Epilepsy, unspecified, not intractable, without status epilepticus; G20 Parkinson's disease; F02.80 Dementia in other diseases classified elsewhere, unspecified severity, without behavioral disturbance, psychotic disturbance, mood disturbance, and anxiety; E87.5 Hyperkalemia; F20.9 Schizophrenia, unspecified; Z93.0 Tracheostomy status; Z93.1 Gastrostomy status; Z86.73 Personal history of transient ischemic attack (TIA), and cerebral infarction without residual deficits; I25.2 Old myocardial infarction; Z79.899 Other long term (current) drug therapy; Z88.1 Allergy status to other antibiotic agents; Z88.2 Allergy status to sulfonamides; Z68.31 Body mass index [BMI] 31.0-31.9, adult
CPT/HCPCS: 36415; 36600; 71045; 76937; 80048; 80053; 80202; 81003; 82375; 82805; 83605; 83735; 84100; 84484; 85025; 87070; 87077; 87102; 87186; 87426; 93005; 93970; 94002; 94003; 94640; 99291; C1725; C1893; J0692; J1200; J1650; J2060; J2405; J2543; J3370; J7030; J7060; J7608; A4315

== ENCOUNTER 2021-09-12 18:32 | Inpatient (IN) | payer MEDICARE, MEDICAID ==
[~2021-09-12] VITALS: Ht 165.1 cm; Wt 86.6 kg
[2021-09-12 19:05] LABS: BG BASE EXCESS -7.7 mmol/L (-2.0-2.0); BG CARBOXYHEMOGLOBIN 0.3 % (0.5-1.5); BG DEOXYHEMOGLOBIN 0.3 % (0.0-5.0); BG FRACTION INSPIRED OXYGEN 100; BG HCO3 ACT 22.2 mmol/L (22.0-26.0); BG METHEMOGLOBIN 0.5 % (0.0-1.5); BG OXYGEN SATURATION 99.7 % (92.0-98.5); BG OXYHEMOGLOBIN 98.9 % (94.0-97.0); BG PCO2 65.9 mmHg (35.0-45.0); BG PH 7.146 (7.350-7.450); BG SAMPLE SITE RIGHT RADIAL; BG TOTAL HEMOGLOBIN 14.1 g/dL (12.0-18.0); BG VENT MODE VENT - AC
[2021-09-12 19:14] LABS: BASOPHILS % 0.3 % (0.0-2.0); EOSINOPHILS % 2.5 % (0.0-5.0); HEMATOCRIT. 33.7 % (36.0-48.0); HEMOGLOBIN. 11.3 g/dL (12.0-16.0); LYMPHOCYTES % 37.4 % (20.0-50.0); MEAN CORPUSCULAR HEMOGLOBIN 30.1 pg (28.0-32.0); MEAN CORPUSCULAR VOLUME 90.2 fL (81.0-99.0); MEAN PLATELET VOLUME 8.9 fl (7.4-10.4); MONOCYTES % 8.8 % (2.0-8.0); PLATELET 235 x1000/uL (130-400); RED BLOOD CELL COUNT 3.74 mill/uL (4.2-5.4)
[2021-09-12] MEDS ORDERED: SODIUM CHLORIDE 0.9% 1,000 ML IV ONE (19:15)
[2021-09-12] MEDS ORDERED: MIDAZOLAM 100 MG/100 ML IV NR (19:15)
[2021-09-12 19:17] LABS: CLARITY URINE CLOUDY (CLEAR); COLOR URINE YELLOW (YELLOW); KETONES URINE NEGATIVE (NEGATIVE); LEUKOCYTE ESTERASE URINE 3+ (NEGATIVE); NITRITE URINE NEGATIVE (NEGATIVE); OCCULT BLOOD URINE NEGATIVE (NEGATIVE); PH URINE 7.5 (4.5-8.0); PROTEIN URINE NEGATIVE (NEGATIVE); SPECIFIC GRAVITY URINE 1.013 (1.005-1.030); UROBILINOGEN URINE 0.2 E.U./dL (0.2-1.0)
[2021-09-12 19:17] LABS: CHLORIDE 107 mEq/L (98-107)
[2021-09-12 19:19] LABS: PROTHROMBIN TIME 10.3 sec (9.6-11.0)
[2021-09-12] MEDS ORDERED: VANCOMYCIN 1G PREMIX 200 ML IV ONE (19:45)
[2021-09-12] MEDS ORDERED: SODIUM CHLORIDE 0.9% 1000ML BAG (SEPSIS BOLUS) IV ONE (19:45)
[2021-09-12] MEDS ORDERED: PIPERACILLIN/TAZ 3.375G PREMIX 50 ML IV ONE (19:45)
[2021-09-12] MEDS ORDERED: IPRATROPIUM/ALBUTEROL 0.5-3(2.5)MG/3ML NEB NEB PRN (22:30)
[2021-09-12] MEDS ORDERED: CLONIDINE 0.1MG TABLET PEG PRN (22:30)
[2021-09-12] MEDS ORDERED: VANCOMYCIN 1GM PMX (XELLIA) 200 ML IV NR (22:30)
[2021-09-12] MEDS: DEXT 5%/0.45% NACL 1000ML 1,000 ML IV SCH (23:24)
[2021-09-13] VITALS (8 sets, daily range): BP systolic 98–134; BP diastolic 46–89
[2021-09-13] MEDS: IPRATROPIUM/ALBUTEROL 0.5-3(2.5)MG/3ML NEB HHN SCH ×4 (02:04→20:07)
[2021-09-13] MEDS ORDERED: LORA-250 GT (05:19)
[2021-09-13] MEDS ORDERED: DOCU-138 GT (05:19)
[2021-09-13] MEDS ORDERED: DIPH25CA83 GT (05:19)
[2021-09-13] MEDS ORDERED: FAMO-135 GT (05:19)
[2021-09-13] MEDS: LORAZEPAM 2MG/ML CPJ IV PRN ×4 (07:13→20:28)
[2021-09-13] MEDS: PANTOPRAZOLE SODIUM 40 MG/VIAL IV SCH (08:24)
[2021-09-13] MEDS: ENOXAPARIN 40MG/0.4ML SYR SUBCUT SCH (08:25)
[2021-09-13 09:36] LABS: BG BASE EXCESS -3.6 mmol/L (-2.0-2.0); BG CARBOXYHEMOGLOBIN 0.3 % (0.5-1.5); BG DEOXYHEMOGLOBIN 0.8 % (0.0-5.0); BG FRACTION INSPIRED OXYGEN 60; BG HCO3 ACT 19.5 mmol/L (22.0-26.0); BG METHEMOGLOBIN 0.3 % (0.0-1.5); BG OXYGEN SATURATION 99.2 % (92.0-98.5); BG OXYHEMOGLOBIN 98.6 % (94.0-97.0); BG PCO2 29.3 mmHg (35.0-45.0); BG PO2 233.5 mmHg (75.0-100.0); BG SAMPLE SITE RIGHT RADIAL; BG TOTAL HEMOGLOBIN 11.8 g/dL (12.0-18.0); BG VENT MODE VENT - AC
[2021-09-13] MEDS: ACETAMINOPHEN 650MG/20.3ML UDC GT PRN (11:30)
[2021-09-13] MEDS ORDERED: LEVETIRACETAM 1000MG PREMIX 100 ML IV SCH (12:00)
[2021-09-13] MEDS ORDERED: QUET100T PO (12:53)
[2021-09-13] MEDS: DEXT 5%/0.45% NACL 1000ML 1,000 ML IV SCH (18:14)
[2021-09-13] MEDS: LEVETIRACETAM 500MG PREMIX 100 ML IV SCH (20:46)
[2021-09-14] VITALS (12 sets, daily range): BP systolic 91–145; BP diastolic 41–93
[2021-09-14] MEDS: IPRATROPIUM/ALBUTEROL 0.5-3(2.5)MG/3ML NEB HHN SCH ×4 (02:09→20:45)
[2021-09-14] MEDS: LORAZEPAM 2MG/ML CPJ IV PRN ×5 (04:33→21:08)
[2021-09-14 06:25] LABS: BASOPHILS % 0.3 % (0.0-2.0); EOSINOPHILS % 1.3 % (0.0-5.0); HEMATOCRIT. 31.9 % (36.0-48.0); HEMOGLOBIN. 10.9 g/dL (12.0-16.0); LYMPHOCYTES % 38.8 % (20.0-50.0); MEAN CORPUSCULAR HEMOGLOBIN 30.1 pg (28.0-32.0); MEAN CORPUSCULAR VOLUME 88.4 fL (81.0-99.0); MONOCYTES % 12.9 % (2.0-8.0); NEUTROPHILS % 46.7 % (40.0-76.0); RED BLOOD CELL COUNT 3.61 mill/uL (4.2-5.4); RED CELL DISTRIBUTION WIDTH 14.3 % (11.6-14.6)
[2021-09-14 07:16] LABS: CHLORIDE 113 mEq/L (98-107)
[2021-09-14] MEDS: LEVETIRACETAM 500MG PREMIX 100 ML IV SCH (08:04)
[2021-09-14] MEDS: ENOXAPARIN 40MG/0.4ML SYR SUBCUT SCH (08:45)
[2021-09-14] MEDS: PANTOPRAZOLE SODIUM 40 MG/VIAL IV SCH (08:46)
[2021-09-14] MEDS: DIPHENHYDRAMINE 50MG/ML VIAL IV PRN (08:47)
[2021-09-14] MEDS: ONDANSETRON HCL 4MG/2ML INJ IV PRN (08:47)
[2021-09-14 09:00] LABS: BG BASE EXCESS -1.7 mmol/L (-2.0-2.0); BG CARBOXYHEMOGLOBIN 0.2 % (0.5-1.5); BG DEOXYHEMOGLOBIN 1.1 % (0.0-5.0); BG FRACTION INSPIRED OXYGEN 55; BG HCO3 ACT 22.6 mmol/L (22.0-26.0); BG METHEMOGLOBIN 0.3 % (0.0-1.5); BG OXYGEN SATURATION 98.9 % (92.0-98.5); BG OXYHEMOGLOBIN 98.4 % (94.0-97.0); BG PCO2 36.7 mmHg (35.0-45.0); BG PH 7.407 (7.350-7.450); BG PO2 159.7 mmHg (75.0-100.0); BG SAMPLE SITE RIGHT RADIAL; BG TOTAL HEMOGLOBIN 11.5 g/dL (12.0-18.0); BG VENT MODE VENT - AC
[2021-09-14] MEDS ORDERED: LIDOCAINE HCL 1% 10 MG/ML 10ML VIAL ONE (09:18)
[2021-09-14 11:01] LABS: MEAN PLATELET VOLUME 9.6 fl (7.4-10.4); PLATELET 213 x1000/uL (130-400)
[2021-09-14] MEDS ORDERED: PHENYTOIN SODIUM 500 MG in SODIUM CHLORIDE 0.9% 50 ML IV NR (11:15)
[2021-09-14] MEDS ORDERED: LEVETIRACETAM 500MG PREMIX 100 ML IV SCH (12:30)
[2021-09-14] MEDS: DEXT 5%/0.45% NACL 1000ML 1,000 ML IV SCH (14:55)
[2021-09-14] MEDS: PHENYTOIN SODIUM 100MG/2ML VIAL IV SCH (20:32)
[2021-09-14] MEDS: LEVETIRACETAM 1000MG PREMIX 100 ML IV SCH (20:32)
[2021-09-15] VITALS (13 sets, daily range): BP systolic 72–154; BP diastolic 46–103
[2021-09-15] MEDS: IPRATROPIUM/ALBUTEROL 0.5-3(2.5)MG/3ML NEB HHN SCH ×4 (01:45→20:13)
[2021-09-15] MEDS: PHENYTOIN SODIUM 100MG/2ML VIAL IV SCH ×4 (04:18→21:44)
[2021-09-15] MEDS: LORAZEPAM 2MG/ML CPJ IV PRN ×2 (04:41→21:40)
[2021-09-15] MEDS: ENOXAPARIN 30MG/0.3ML SYR SUBCUT SCH ×2 (08:49→21:44)
[2021-09-15] MEDS: PANTOPRAZOLE SODIUM 40 MG/VIAL IV SCH (08:49)
[2021-09-15] MEDS: LEVETIRACETAM 500MG PREMIX 100 ML IV SCH (08:50)
[2021-09-15] MEDS: LEVETIRACETAM 1000MG PREMIX 100 ML IV SCH ×2 (08:55→21:44)
[2021-09-15] MEDS: DEXT 5%/0.45% NACL 1000ML 1,000 ML IV SCH (12:08)
[2021-09-16] VITALS (13 sets, daily range): BP systolic 105–196; BP diastolic 54–147
[2021-09-16] MEDS: IPRATROPIUM/ALBUTEROL 0.5-3(2.5)MG/3ML NEB HHN SCH ×4 (02:00→21:06)
[2021-09-16] MEDS: DEXT 5%/0.45% NACL 1000ML 1,000 ML IV SCH (06:30)
[2021-09-16] MEDS: LORAZEPAM 2MG/ML CPJ IV PRN ×3 (07:58→23:24)
[2021-09-16] MEDS: PHENYTOIN SODIUM 100MG/2ML VIAL IV SCH (08:01)
[2021-09-16] MEDS ORDERED: FAMOTIDINE 20MG/2ML VIAL IV SCH (09:00)
[2021-09-16] MEDS: ENOXAPARIN 30MG/0.3ML SYR SUBCUT SCH ×2 (09:00→23:05)
[2021-09-16] MEDS: LEVETIRACETAM 1000MG PREMIX 100 ML IV SCH ×2 (09:40→23:04)
[2021-09-16] MEDS ORDERED: LIDOCAINE HCL 1% 10 MG/ML 10ML VIAL ONE (09:56)
[2021-09-16] MEDS ORDERED: PHENYTOIN 100 MG/4 ML UDC NG NR (16:15)
[2021-09-16 16:33] LABS: BASOPHILS % 0.2 % (0.0-2.0); EOSINOPHILS % 2.5 % (0.0-5.0); HEMATOCRIT. 33.8 % (36.0-48.0); HEMOGLOBIN. 11.1 g/dL (12.0-16.0); LYMPHOCYTES % 24.7 % (20.0-50.0); MEAN CORPUSCULAR VOLUME 91.3 fL (81.0-99.0); MEAN PLATELET VOLUME 9.2 fl (7.4-10.4); MONOCYTES % 9.8 % (2.0-8.0); NEUTROPHILS % 62.8 % (40.0-76.0); PLATELET 232 x1000/uL (130-400); RED BLOOD CELL COUNT 3.71 mill/uL (4.2-5.4); RED CELL DISTRIBUTION WIDTH 13.9 % (11.6-14.6)
[2021-09-16 16:47] LABS: CHLORIDE 113 mEq/L (98-107)
[2021-09-16] MEDS ORDERED: POTASSIUM CHLORIDE 20MEQ/PACKET GT NR (18:00)
[2021-09-16] MEDS ORDERED: LEVETIRACETAM 500MG/5ML CUP GT SCH (21:00)
[2021-09-16] MEDS: LEVETIRACETAM 500MG/5ML CUP PO SCH (22:00)
[2021-09-16] MEDS: PHENYTOIN 100 MG/4 ML UDC GT SCH (23:05)
[2021-09-17] VITALS (12 sets, daily range): BP systolic 98–167; BP diastolic 46–98
[2021-09-17] MEDS: IPRATROPIUM/ALBUTEROL 0.5-3(2.5)MG/3ML NEB HHN SCH ×4 (00:13→19:56)
[2021-09-17] MEDS: LEVETIRACETAM 500MG/5ML CUP PO SCH ×2 (08:50→21:43)
[2021-09-17] MEDS: PHENYTOIN 100 MG/4 ML UDC GT SCH ×2 (08:51→21:42)
[2021-09-17] MEDS: ENOXAPARIN 30MG/0.3ML SYR SUBCUT SCH ×2 (08:52→21:42)
[2021-09-17] MEDS: ACETAMINOPHEN 650MG/20.3ML UDC GT PRN (13:54)
[2021-09-17] MEDS ORDERED: CEFEPIME 1,000 MG in DEXTROSE 5% WATER 50 ML IV SCH (16:00)
[2021-09-17] MEDS: CLONAZEPAM 0.5MG TABLET PO SCH ×2 (17:18→21:42)
[2021-09-17] MEDS ORDERED: IPRATROPIUM/ALBUTEROL 0.5-3(2.5)MG/3ML NEB ONE (19:45)
[2021-09-17] MEDS: PIPERACILLIN/TAZOBACTAM 3.375 G in DEXTROSE 5% WATER 50 ML IV SCH (21:41)
[2021-09-18] VITALS (12 sets, daily range): BP systolic 104–154; BP diastolic 47–89
[2021-09-18] MEDS: ONDANSETRON HCL 4MG/2ML INJ IV PRN ×2 (01:45→23:54)
[2021-09-18] MEDS: TRAMADOL 50MG TABLET PO PRN ×2 (01:45→14:14)
[2021-09-18] MEDS: DIPHENHYDRAMINE 50MG/ML VIAL IV PRN ×2 (01:45→23:54)
[2021-09-18] MEDS: IPRATROPIUM/ALBUTEROL 0.5-3(2.5)MG/3ML NEB HHN SCH ×4 (01:57→21:14)
[2021-09-18] MEDS: PIPERACILLIN/TAZOBACTAM 3.375 G in DEXTROSE 5% WATER 50 ML IV SCH ×3 (05:39→21:15)
[2021-09-18] MEDS: CLONAZEPAM 0.5MG TABLET PO SCH ×3 (06:15→21:16)
[2021-09-18] MEDS: PHENYTOIN 100 MG/4 ML UDC GT SCH ×2 (09:56→21:16)
[2021-09-18] MEDS: LEVETIRACETAM 500MG/5ML CUP PO SCH ×2 (09:56→21:16)
[2021-09-18] MEDS: ENOXAPARIN 30MG/0.3ML SYR SUBCUT SCH ×2 (09:57→21:15)
[2021-09-18] MEDS: ACETAMINOPHEN 650MG/20.3ML UDC GT PRN (17:41)
[2021-09-19] VITALS (12 sets, daily range): BP systolic 90–133; BP diastolic 42–74
[2021-09-19] MEDS: DIPHENHYDRAMINE 50MG/ML VIAL IV PRN ×3 (00:09→20:52)
[2021-09-19] MEDS: IPRATROPIUM/ALBUTEROL 0.5-3(2.5)MG/3ML NEB HHN SCH ×4 (00:22→22:33)
[2021-09-19] MEDS: PIPERACILLIN/TAZOBACTAM 3.375 G in DEXTROSE 5% WATER 50 ML IV SCH ×2 (05:07→13:12)
[2021-09-19] MEDS: CLONAZEPAM 0.5MG TABLET PO SCH ×3 (05:07→22:18)
[2021-09-19] MEDS: PHENYTOIN 100 MG/4 ML UDC GT SCH ×2 (09:02→20:52)
[2021-09-19] MEDS: TRAMADOL 50MG TABLET PO PRN (09:02)
[2021-09-19] MEDS: LEVETIRACETAM 500MG/5ML CUP PO SCH ×2 (09:02→20:28)
[2021-09-19] MEDS: ONDANSETRON HCL 4MG/2ML INJ IV PRN (09:03)
[2021-09-19] MEDS: ENOXAPARIN 30MG/0.3ML SYR SUBCUT SCH ×2 (09:04→20:28)
[2021-09-19] MEDS: QUETIAPINE FUMARATE 50MG TABLET PO SCH ×2 (09:18→18:15)
[2021-09-19] MEDS: ACETAMINOPHEN 650MG/20.3ML UDC GT PRN (13:35)
[2021-09-20] VITALS (12 sets, daily range): BP systolic 91–140; BP diastolic 45–73
[2021-09-20] MEDS: ONDANSETRON HCL 4MG/2ML INJ IV PRN (01:43)
[2021-09-20] MEDS: IPRATROPIUM/ALBUTEROL 0.5-3(2.5)MG/3ML NEB HHN SCH ×4 (01:45→18:00)
[2021-09-20] MEDS: DIPHENHYDRAMINE 50MG/ML VIAL IV PRN ×2 (03:32→21:45)
[2021-09-20] MEDS: CLONAZEPAM 0.5MG TABLET PO SCH ×3 (04:48→21:45)
[2021-09-20] MEDS: PHENYTOIN 100 MG/4 ML UDC GT SCH ×2 (08:42→20:54)
[2021-09-20] MEDS: QUETIAPINE FUMARATE 50MG TABLET PO SCH ×2 (08:42→18:04)
[2021-09-20] MEDS: ENOXAPARIN 30MG/0.3ML SYR SUBCUT SCH ×2 (08:42→20:54)
[2021-09-20] MEDS: LEVETIRACETAM 500MG/5ML CUP PO SCH ×2 (08:42→20:59)
[2021-09-20] MEDS ORDERED: NALOXONE HCL 0.4MG/ML VIAL IV PRN (14:15)
[2021-09-20] MEDS: ACETAMINOPHEN 650MG/20.3ML UDC GT PRN (14:56)
[2021-09-21] VITALS (9 sets, daily range): BP systolic 95–120; BP diastolic 56–68
[2021-09-21] MEDS: DIPHENHYDRAMINE 50MG/ML VIAL IV PRN ×2 (02:25→12:20)
[2021-09-21] MEDS: ONDANSETRON HCL 4MG/2ML INJ IV PRN (02:25)
[2021-09-21] MEDS: CLONAZEPAM 0.5MG TABLET PO SCH ×2 (06:04→13:55)
[2021-09-21 06:05] LABS: BASOPHILS % 0.3 % (0.0-2.0); EOSINOPHILS % 0.8 % (0.0-5.0); HEMATOCRIT. 34.4 % (36.0-48.0); HEMOGLOBIN. 11.3 g/dL (12.0-16.0); LYMPHOCYTES % 24.3 % (20.0-50.0); MEAN CORPUSCULAR HEMOGLOBIN 29.9 pg (28.0-32.0); MEAN CORPUSCULAR VOLUME 91.1 fL (81.0-99.0); MEAN PLATELET VOLUME 9.2 fl (7.4-10.4); MONOCYTES % 8.9 % (2.0-8.0); NEUTROPHILS % 65.7 % (40.0-76.0); PLATELET 242 x1000/uL (130-400); RED BLOOD CELL COUNT 3.77 mill/uL (4.2-5.4); RED CELL DISTRIBUTION WIDTH 14.3 % (11.6-14.6)
[2021-09-21 07:30] LABS: CHLORIDE 116 mEq/L (98-107)
[2021-09-21] MEDS: PHENYTOIN 100 MG/4 ML UDC GT SCH (08:50)
[2021-09-21] MEDS: LEVETIRACETAM 500MG/5ML CUP PO SCH (08:50)
[2021-09-21] MEDS: QUETIAPINE FUMARATE 50MG TABLET PO SCH (08:50)
[2021-09-21] MEDS: ACETAMINOPHEN 650MG/20.3ML UDC GT PRN ×2 (08:50→12:20)
[2021-09-21] MEDS: ENOXAPARIN 30MG/0.3ML SYR SUBCUT SCH (08:50)
[2021-09-21] MEDS: IPRATROPIUM/ALBUTEROL 0.5-3(2.5)MG/3ML NEB HHN SCH ×2 (08:56)
[2021-09-21] MEDS: TRAMADOL 50MG TABLET PO PRN (13:55)
[2021-09-21] MEDS ORDERED: ENOXAPARIN 40MG/0.4ML SYR SUBCUT SCH (21:00)
== END 2021-09-21 15:55 | DRG 870 ==
LOC: ER 18:32 → EDBEDREQ 18:41 → MICUNO 20:17 → EDBEDREQTM 20:20 → EDBEDREQ 20:20 → ENRESERV 21:16 → 5EST 09-13 01:49
PROVIDERS: ADMIT Internal Medicine; ATTEND Internal Medicine
PROC: 5A1955Z Respiratory Ventilation, Greater than 96 Consecutive Hours (ICD-10-PCS; principal; 2021-09-12)
PROC: 4A10X4Z Monitoring of Central Nervous Electrical Activity, External Approach (ICD-10-PCS; 2021-09-14)
PROC: 05HM33Z Insertion of Infusion Device into Right Internal Jugular Vein, Percutaneous Approach (ICD-10-PCS; 2021-09-16)
PROC: B543ZZA Ultrasonography of Right Jugular Veins, Guidance (ICD-10-PCS; 2021-09-16)
DX: A41.9 Sepsis, unspecified organism (principal); J18.9 Pneumonia, unspecified organism; G93.41 Metabolic encephalopathy; J96.21 Acute and chronic respiratory failure with hypoxia; J95.03 Malfunction of tracheostomy stoma; E87.2 Acidosis; I13.0 Hypertensive heart and chronic kidney disease with heart failure and stage 1 through stage 4 chronic kidney disease, or unspecified chronic kidney disease; N39.0 Urinary tract infection, site not specified; Z99.11 Dependence on respirator [ventilator] status; K94.23 Gastrostomy malfunction; J44.0 Chronic obstructive pulmonary disease with (acute) lower respiratory infection; F02.80 Dementia in other diseases classified elsewhere, unspecified severity, without behavioral disturbance, psychotic disturbance, mood disturbance, and anxiety; F20.9 Schizophrenia, unspecified; G20 Parkinson's disease; G40.909 Epilepsy, unspecified, not intractable, without status epilepticus; I50.9 Heart failure, unspecified; B19.20 Unspecified viral hepatitis C without hepatic coma; D64.9 Anemia, unspecified; R13.10 Dysphagia, unspecified; Z20.822 Contact with and (suspected) exposure to COVID-19; S06.9X0A Unspecified intracranial injury without loss of consciousness, initial encounter; X58.XXXA Exposure to other specified factors, initial encounter; J98.4 Other disorders of lung; N18.9 Chronic kidney disease, unspecified; F99 Mental disorder, not otherwise specified; Z86.73 Personal history of transient ischemic attack (TIA), and cerebral infarction without residual deficits; Z86.74 Personal history of sudden cardiac arrest; Z88.1 Allergy status to other antibiotic agents; Z88.5 Allergy status to narcotic agent; Z88.8 Allergy status to other drugs, medicaments and biological substances; Y93.89 Activity, other specified; Y92.89 Other specified places as the place of occurrence of the external cause; Y99.8 Other external cause status
CPT/HCPCS: 36415; 36600; 71045; 76937; 80048; 80053; 80185; 81003; 82375; 82805; 83605; 83735; 83880; 84145; 84484; 85025; 87070; 87077; 87186; 87426; 93005; 94002; 94003; 94640; 95816; 99291; A6261; C1725; C9113; J1165; J1200; J1650; J1953; J2060; J2250; J2405; J2543; J3370; J3490; J7060; A4315